=== PATIENT | female | born 1975 ===

== ENCOUNTER 2016-07-23 17:39 | Observation (INO) | payer MEDICAID ==
[2016-07-23 17:40] VITALS: BMI 36.0
--- NOTE | 2016-07-23 18:21 | C.PDOC ---
History Of Present Illness <Rebekah Lewis - Last Filed: 07/23/16 19:00> <Krupa Chadwick - Last Filed: 07/23/16 20:53> 41 y/o female with PMH DM, HTN, CAD and chronic back pain presents to the ED with complaints of left sided chest pain and dizziness since last night. Patient reports chest pain is intermittent and describes it as burning. She states she has SOB with exertion. She reports dizziness worse upon standing or walking and almost fell last night. Additionally patient complains of bilateral heel pain. She took ibuprofen without relief. Allergic to aspirin. Denies fever , chills, cough, nausea, headache, vomiting or any other complaints. (Rebekah Lewis) History Per: Patient History/Exam Limitations: no limitations Onset/Duration Of Symptoms: Hrs Current Symptoms Are (Timing): Still Present Quality: Burning Modifying Factors: None Alleviating Factors: None Recent travel outside of the [place]: No <Rbeekah Lewis - Last Filed: 07/23/16 19:00> <Krupa Chadwick - Last Filed: 07/23/16 20:53> Time Seen by Provider: 07/23/16 18:11 Chief Complaint (Nursing): Chest Pain Past Medical History Reviewed: Historical Data, Nursing Documentation, Vital Signs - Medical History PMH: Asthma, Back Problems (2 herniated discz), Cardia Arrhythmia, Diabetes, HTN , Kidney Stones, Chronic Kidney Disease Surgical History: Coronary Stent Comment Only: Pacemaker (revealed device 2014 dr. Galan) Family History: States: Unknown Family Hx - Social History Hx Tobacco Use: No Hx Alcohol Use: No Hx Substance Use: No - Immunization History Hx Tetanus Toxoid Vaccination: No Hx Influenza Vaccination: Yes Hx Pneumococcal Vaccination: No <Rebekah Lewis - Last Filed: 07/23/16 19:00> Vital Signs: Last Vital Signs Temp 98.0 F 07/23/16 18:26 Pulse 75 07/23/16 18:26 Resp 14 07/23/16 18:26 BP 105/69 07/23/16 18:26 Pulse Ox 98 07/23/16 18:26 - [facility] Procedures INSPECTION OF LOWER INTESTINAL TRACT, ENDO (05/13/16) Review Of Systems Constitutional: Negative for: Fever, Chills, Weakness, Malaise Eyes: Negative for: Conjunctivae Inflammation ENT: Negative for: Nose Congestion, Throat Pain Cardiovascular: Positive for: Chest Pain Respiratory: Positive for: Shortness of Breath. Negative for: Cough, Sputum, Wheezing Gastrointestinal: Negative for: Nausea, Vomiting, Abdominal Pain, Diarrhea Musculoskeletal: Positive for: Other (bilateral heel pain). Negative for: Neck Pain, Back Pain Neurological: Positive for: Dizziness. Negative for: Weakness, Numbness, Headache <LewisRebekah Last Filed: 07/23/16 19:00> Physical Exam - Physical Exam Appears: Non-toxic, No Acute Distress, Other (morbidly obese) Skin: Warm, Dry, No Rash Head: Atraumatic, Normacephalic Eye(s): bilateral: Normal Inspection, EOMI Nose: Normal Neck: Normal ROM, Supple Chest: Symmetrical, Tenderness (anterior chest wall) Cardiovascular: Rhythm Regular, No Murmur Respiratory: Normal Breath Sounds, No Rales, No Rhonchi, No Wheezing Gastrointestinal/Abdominal: Bowel Sounds, Soft, No Tenderness, No Mass, No Distention Back: Normal Inspection, No CVA Tenderness Extremity: Normal ROM, Tenderness (bilateral heel tenderness), No Pedal Edema, No Calf Tenderness, No Deformity Pulses: Left Dorsalis Pedis: Normal, Right Dorsalis Pedis: Normal Neurological/Psych: Oriented x3, Normal Speech, Normal Cranial Nerves, No Cerebellar Signs, Normal Motor, Normal Sensation Gait: Steady <Rebekah Lewis Filed: 07/23/16 19:00> ED Course And Treatment ECG: Interpreted By Me, Viewed By Me ECG Rhythm: Sinus Rhythm ECG Interpretation: No Acute Changes, No Changes From Prior (05/13/16) Rate From EC (BPM) <Rebekah Lewis Last Filed: 07/23/16 19:00> - Laboratory Results Result Diagrams: 07/23/16 19:01 07/23/16 19:01 Lab Interpretation: No Acute Changes Urine POC: Negative - Radiology CXR: Viewed By Me, Read By Radiologist CXR Interpretation: Yes: No Acute Disease Progress Note: Pt was signed out to me at 7pm by JIMY Lewis/Dr. Gibbs to f/up labs and CXR. Pt still c/o CP. I ordered Plavix for pt since she is allergic to aspirin. <Estephan,Amir E - Last Filed: 07/23/16 20:53> Medical Decision Making <Rebekah Lewis - Last Filed: 07/23/16 19:00> <Krupa Chadwick E - Last Filed: 07/23/16 20:53> Medical Decision Making: Impression: 41 y.o female with PMH DM, HTN and Coronary stents, rule out ACS Plan: * EKG * Labs * CXR Progress: EKG obtained and reviewed showing NS at 72 bpm with normal axis and no ischemic changes. No changs from 05/13/16 Case signed out to Dr Chadwick pending labs, reeval and dispo (Rebekah Lewis) Disposition - Disposition Disposition Time: 19:01 - POA Present On Arrival: None <Rebekah Lewis - Last Filed: 07/23/16 19:00> Discussed With DrZahra: José Miguel Abebe Comment: He accepted pt on hospitalist service since she is a pt of Dr. Montero. Doctor Will See Patient In The: Hospital Counseled Patient/Family Regarding: Studies Performed, Diagnosis - Disposition Disposition Time: 20:52 <Krupa Chadwick E - Last Filed: 07/23/16 20:53> - Disposition Disposition: HOSPITALIZED Condition: FAIR - Clinical Impression Clinical Impression: Dizziness, Chest pain - PA / CASSEROLE PREPARER / Resident Statement MD/DO has reviewed & agrees with the documentation as recorded. - Scribe Statement The provider has reviewed the documentation as recorded by the Scribe <Rebekah Lewis - Last Filed: 07/23/16 19:00> <Krupa Chadwick E - Last Filed: 07/23/16 20:53> - Scribe Statement Simon Hung All medical record entries made by the Scribe were at my direction and personally dictated by me. I have reviewed the chart and agree that the record accurately reflects my personal performance of the history, physical exam, medical decision making, and the department course for this patient. I have also personally directed, reviewed, and agree with the discharge instructions and disposition. (Rebekah Lewis) Physician Patient Turnover Patient Signed Over To: Krupa Chadwick Handoff Comments: pending labs, reeval and dispo <Rebekah Lewis - Last Filed: 07/23/16 19:00>
[2016-07-23] MEDS ORDERED: Sodium Chloride 0.9% 1,000 ML IV ONE (18:35)
[2016-07-23 19:14] LABS: BASO # 0.1 K/uL (0.0-0.2); BASO % 0.9 % (0.0-2.0); EOS # 0.1 K/uL (0.0-0.7); EOS % 0.9 % (0.0-4.0); HEMATOCRIT 40.6 % (34.0-47.0); LYMPH # 2.1 K/uL (1.0-4.3); MEAN CELL VOLUME 91.6 fL (81.0-99.0); MEAN CORPUSCULAR HEMOGLOBIN 29.4 pg (27.0-31.0); MEAN PLATELET VOLUME 8.2 fL (7.2-11.7); MONO # 0.5 K/uL (0.0-0.8); MONO % 6.5 % (0.0-10.0); RED CELL DISTRIBUTION WIDTH 13.2 % (11.5-14.5); WHITE BLOOD COUNT 7.4 K/uL (4.8-10.8)
[2016-07-23 19:22] LABS: CHLORIDE 99 mmol/L (98-107); SODIUM 140 mmol/L (132-148)
[2016-07-23 19:24] LABS: GFR AFRICAN-AMERICAN > 60
[2016-07-23 19:25] LABS: ALB/GLOB RATIO 1.2 (1.0-2.1); ALKALINE PHOSPHATASE 68 U/L (38-126); ALT/SGPT 25 U/L (9-52); AST/SGOT 19 U/L (14-36); BILIRUBIN,TOTAL 0.3 mg/dL (0.2-1.3); BLOOD UREA NITROGEN 16 mg/dL (7-17); CARBON DIOXIDE 29 mmol/L (22-30); GLUCOSE,RANDOM 97 mg/dL (65-105); TOTAL PROTEIN 7.1 g/dL (6.3-8.3)
[2016-07-23 19:26] LABS: CALCIUM 8.6 mg/dl (8.6-10.4)
[2016-07-23] MEDS ORDERED: Sodium Chloride 0.9% 1,000 ML ONE (19:49)
[2016-07-23 20:17] LABS: RBC URINE 3 /hpf (0-3); URINE BACTERIA FEW (<OCC); URINE BILIRUBIN NEGATIVE (NEGATIVE); URINE BLOOD 1+ (NEGATIVE); URINE COLOR Yellow (YELLOW); URINE GLUCOSE (UA) NORMAL (Normal); URINE KETONE NEGATIVE (NEGATIVE); URINE LEUKOCYTE ESTERASE 3+ Leu/uL (Negative); URINE PROTEIN NEGATIVE (NEGATIVE); URINE UROBILINOGEN NORMAL mg/dL (0.2-1.0); WBC URINE 12 /hpf (0-5)
--- NOTE | 2016-07-23 21:02 | CP.PCM.HP ---
History of Present Illness - History of Present Illness History of Present Illness: CC: Chest pain, SOB, Dizziness HPI: Patient is 41 year old female, with PMHx of DM, HTN, CAD and herniated discs, who presents to the ED with complaints of chest pain, and dizziness last night. She reports that the chest pain came on suddenly last night after dinner. She thought the pain was just "gas pain," so she took 2 ibuprofen tablets to take the pain away. She was able to go to sleep but the pain woke her up in the middle of the night. When in the morning the pain remained she decided to go to the emergency room. She describes the chest pain as an intermittent, "burning, pressure-like pain" in the left side of her chest that radiates to the left arm and neck. She rates the pain as 7/10 on the severity scale now, but 10/10 at the worst. Pt also c/o SOB with exertion. She states previously she had been able to get around her house with no issues but lately it has become more difficult. She also reports associated dizziness that is worse with standing or walking. She describes the dizziness as the sensation of the room spinning, and was to the point last night and almost fell last night. She reports having this dizziness before when her chest pain began "a few years ago." Additionally patient complains of bilateral heel pain. She reports any pressure on her heels brings a shooting pain up her legs. She states that she normally has electrical pain, numbness, and tingling in her legs "from her diabetes." Pt notes history of stent placement by her construction executive Dr. Winston Jimenez. She states she saw him last week and he plans on pacemaker placement at a future date. She admits seeing heel slugger twice a year. She also reports seeing an outpatient bariatric clinic for workup for gastric bypass surgery. Denies fever, chills, cough, nausea, headache, vomiting or any other complaints. PMHx: DM, HTN, CAD (stent), atrial fibrillation, 2 herniated discs PSHx: Stent placement (2013 - Dr. Winston Jimenez), Cardiac Cath PMD: Dr. Bullock ([place], [place]) Allergies: ASA, Penicillin (rash) Fam Hx: Mother with T2DM SHx: pt denies alcohol, tobacco, or illicit drug use Cardio: Dr. Winston Jimenez Home Meds: Metformin 500mg PO BID, Victoza 8 units in in AM/PM with meals, Percocet (unknown dose) BID, Pt does not remember BP med - Pharmacy: [facility], [address] in [place], [place] Present on Admission - Present on Admission Any Indicators Present on Admission: No Review of Systems - Constitutional Constitutional: absent: Chills, Fever, Headache, Weight Gain, Weight Loss - EENT Eyes: absent: Blurred Vision Ears: absent: Decreased Hearing Nose/Mouth/Throat: Dry Mouth. absent: Nasal Discharge - Cardiovascular Cardiovascular: Chest Pain, Chest Pain at Rest, Dyspnea on Exertion. absent: Dyspnea, Orthopnea, Palpitations - Respiratory Respiratory: Dyspnea on Exertion. absent: Cough - Gastrointestinal Gastrointestinal: absent: Abdominal Pain, Diarrhea, Nausea, Vomiting - Genitourinary Genitourinary: absent: Dysuria, Urinary Frequency - Neurological Neurological: Dizziness. absent: Focal Weakness, Weakness - Psychiatric Psychiatric: absent: Anxiety, Depression - Endocrine Endocrine: absent: Palpitations, Polydipsia, Polyphagia, Polyuria Past Patient History - Infectious Disease Hx of Infectious Diseases: None - Past Medical History & Family History Past Medical History?: Yes - Past Social History Smoking Status: Never Smoked - CARDIAC Hx Cardia Arrhythmia: Yes Hx Hypertension: Yes Hx Pacemaker: (revealed device 2013 dr. Galan) - PULMONARY Hx Asthma: Yes - NEUROLOGICAL Hx Neurological Disorder: No - HEENT Hx HEENT Problems: No - RENAL Hx Chronic Kidney Disease: Yes Hx Kidney Stones: Yes - ENDOCRINE/METABOLIC Hx Diabetes Mellitus Type 2: Yes - HEMATOLOGICAL/ONCOLOGICAL Hx Blood Disorders: No - INTEGUMENTARY Hx Dermatological Problems: No - MUSCULOSKELETAL/RHEUMATOLOGICAL Hx Musculoskeletal Disorders: Yes - GASTROINTESTINAL Hx Gastrointestinal Disorders: Yes Hx Hemorrhoids: Yes - GENITOURINARY/GYNECOLOGICAL Hx Genitourinary Disorders: No - PSYCHIATRIC Hx Substance Use: No - SURGICAL HISTORY Hx Coronary Stent: Yes - ANESTHESIA Hx Anesthesia: Yes Hx Anesthesia Reactions: No Meds Allergies/Adverse Reactions: Allergies Allergy/AdvReac Type Severity Reaction Status Date / Time aspirin Allergy URTICARIA Verified 05/22/16 03:55 Penicillins Allergy Verified 07/23/16 17:57 Physical Exam - Constitutional Appears: Non-toxic, No Acute Distress Additional comments: Morbidly Abuse - Head Exam Head Exam: ATRAUMATIC, NORMAL INSPECTION, NORMOCEPHALIC - Eye Exam Eye Exam: EOMI Pupil Exam: PERRL - ENT Exam ENT Exam: Mucous Membranes Moist - Neck Exam Neck exam: Positive for: Normal Inspection - Respiratory Exam Respiratory Exam: Clear to Auscultation Bilateral. absent: Rales, Rhonchi, Wheezes - Cardiovascular Exam Cardiovascular Exam: REGULAR RHYTHM, +S1, +S2 - GI/Abdominal Exam GI & Abdominal Exam: Normal Bowel Sounds, Soft Additional comments: morbid obesity - Extremities Exam Extremities exam: Positive for: pedal edema (non-pitting swelling), tenderness ( worst at the heel). Negative for: calf tenderness Additional comments: heel lesions - Back Exam Back exam: absent: CVA tenderness (L), CVA tenderness (R) - Neurological Exam Neurological exam: Alert, Oriented x3 - Psychiatric Exam Psychiatric exam: Normal Affect, Normal Mood - Skin Skin Exam: Normal Color, Warm Results - Vital Signs Recent Vital Signs: Last Vital Signs Temp 98.0 F 07/23/16 18:26 Pulse 75 07/23/16 18:26 Resp 14 07/23/16 18:26 BP 105/69 07/23/16 18:26 Pulse Ox 98 07/23/16 18:26 - Labs Result Diagrams: 07/23/16 19:01 07/23/16 19:01 Labs: Laboratory Results - last 24 hr 07/23/16 07/23/16 07/23/16 19:01 19:46 20:15 WBC 7.4 RBC 4.44 Hgb 13.0 Hct 40.6 MCV 91.6 MCH 29.4 MCHC 32.0 L RDW 13.2 Plt Count 278 MPV 8.2 Neut % (Auto) 62.7 Lymph % (Auto) 29.0 [place] % (Auto) 6.5 Eos % (Auto) 0.9 Baso % (Auto) 0.9 Neut # 4.6 Lymph # 2.1 [place] # 0.5 Eos # 0.1 Baso # 0.1 PT 11.6 INR 1.0 APTT 30 Sodium 140 Potassium 4.0 Chloride 99 Carbon Dioxide 29 Anion Gap 16 BUN 16 Creatinine 0.8 Est GFR ( Amer) > 60 Est GFR (Non-Af Amer) > 60 POC Glucose (mg/dL) 95 Random Glucose 97 Calcium 8.6 Total Bilirubin 0.3 AST 19 ALT 25 Alkaline Phosphatase 68 Troponin I < 0.0120 NT-Pro-B Natriuret Pep 267 Total Protein 7.1 Albumin 3.8 Globulin 3.3 Albumin/Globulin Ratio 1.2 Urine Color Yellow Urine Clarity Clear Urine pH 6.0 Ur Specific [place] 1.016 Urine Protein Negative Urine Glucose (UA) Normal Urine Ketones Negative Urine Blood 1+ H Urine Nitrate Negative Urine Bilirubin Negative Urine Urobilinogen Normal Ur Leukocyte Esterase 3+ H Urine WBC (Auto) 12 H Urine RBC (Auto) 3 Ur Squamous Epith Cells 2 Urine Bacteria Few H Urine HCG, Qual Negative Assessment & Plan - Assessment and Plan (Free Text) Assessment: Chest pain Pt tender to palpation on anterior chest wall Observation on telemetry unit FELIPE: negative x1, f/u Q6H x 2 EKG: NSR, no acute St/T wave changes; f/u Q6H x2 CXR: NAD Pt allergic to Aspirin (rash) Hold Beta katerina, Venkatesh Inhibitor as pt normotensive Plavix 300mg x 1 in ED 2L O2 PRN f/u Lipid panel, TSH, Free T4, A1C, UDS ECHO (02/26/2016): LV systolic & diastolic fxn appear normal. Mitral valve normal. Cannot comment on other structures of function. Cardiology consult: Dr. Winston Keys - f/u reccs HERMINIO score: 3, 14% DM Continue home med: Metformin 500mg PO BID Victoza (Non-formulary) HELD ISS f/u hemoglobin A1c Dizziness With walking, not positional Orthostatic vitals: WNL; [place]-Hallpike negative Previous syncopal work up: carotid dopplers (05/19): negative HTN Normotensive in ED Pt does not know home med Holding BB, Venkatesh inhibitor as pt normotensive Herniated discs Percocet 5/325mg Q12H (listed in prior admission) On previous admission, Dr. Dexter discharge summary notes "frequent visits to [facility] hospitals with non-specific complaints...with drug seeking behavior" Atrial fibrillation Questionable hx - see Dr. Dexter note from last admission EKG: NSR, No St/T wave changes Abnormal UA w/o symptoms: UA: 1+ blood, 3+ LE, WBC 12, RBC 3, Bacteria few Asymptomatic, No treatment at this time Prophylaxis SCDs Pepcid 20 mg PO BID Heparin 5000 units Q8H Heart healthy moderate carb diet Fall precautions PT evaluation
[2016-07-23] MEDS: Oxycodone/Acetaminophen 5/325 mg Tab PO PRN (23:02)
[2016-07-24] MEDS ORDERED: Pneumococcal 23-Valent Vaccine IM ONE (05:14)
[2016-07-24] MEDS ORDERED: Oxycodone/Acetaminophen 5/325 mg Tab PO ONE (05:15)
[2016-07-24] MEDS: (Novolin R) Insulin Human Regular 100 units/ml vial SC SCH ×4 (07:41→21:50)
--- NOTE | 2016-07-24 08:49 | RAD ---
HISTORY: chest pain COMPARISON: 02/26/2016 TECHNIQUE: Chest PA and lateral FINDINGS: LUNGS: No active pulmonary disease. PLEURA: No significant pleural effusion identified. No pneumothorax apparent. CARDIOVASCULAR: Normal. OSSEOUS STRUCTURES: No significant abnormalities. VISUALIZED UPPER ABDOMEN: Normal. OTHER FINDINGS: None. IMPRESSION: No active disease.
[2016-07-24 09:57] LABS: BASO % 0.6 % (0.0-2.0); EOS # 0.1 K/uL (0.0-0.7); EOS % 1.3 % (0.0-4.0); HEMATOCRIT 38.7 % (34.0-47.0); LYMPH # 2.2 K/uL (1.0-4.3); LYMPH % 33.2 % (20.0-40.0); MEAN CELL VOLUME 92.2 fL (81.0-99.0); MEAN CORPUSCULAR HEMOGLOBIN 29.6 pg (27.0-31.0); MEAN CORPUSCULAR HGB CONC 32.2 g/dL (33.0-37.0); MEAN PLATELET VOLUME 8.6 fL (7.2-11.7); MONO # 0.4 K/uL (0.0-0.8); MONO % 5.9 % (0.0-10.0); RED CELL DISTRIBUTION WIDTH 13.6 % (11.5-14.5); WHITE BLOOD COUNT 6.7 K/uL (4.8-10.8)
[2016-07-24 10:07] LABS: CHLORIDE 99 mmol/L (98-107)
[2016-07-24 10:08] LABS: SODIUM 140 mmol/L (132-148)
[2016-07-24 10:10] LABS: CHOLESTEROL 141 mg/dL (0-199)
[2016-07-24 10:11] LABS: ALB/GLOB RATIO 1.1 (1.0-2.1); ALKALINE PHOSPHATASE 67 U/L (38-126); ALT/SGPT 19 U/L (9-52); AST/SGOT 20 U/L (14-36); BILIRUBIN,TOTAL 0.5 mg/dL (0.2-1.3); BLOOD UREA NITROGEN 17 mg/dL (7-17); CARBON DIOXIDE 27 mmol/L (22-30); GFR AFRICAN-AMERICAN > 60; GLUCOSE,RANDOM 85 mg/dL (65-105); PHOSPHOROUS 4.5 mg/dL (2.5-4.5); TOTAL PROTEIN 6.9 g/dL (6.3-8.3)
[2016-07-24 10:12] LABS: CALCIUM 8.4 mg/dl (8.6-10.4); MAGNESIUM 1.7 mg/dL (1.6-2.3)
[2016-07-24 10:20] LABS: POTASSIUM 3.4 mmol/L (3.6-5.2)
[2016-07-24] MEDS ORDERED: Potassium Chloride 20 mEq ER Tab PO ONE (10:36)
[2016-07-24 10:45] LABS: THYROID STIMULATING HORMONE 3.11 mIU/L (0.46-4.68)
[2016-07-24] MEDS: Oxycodone/Acetaminophen 5/325 mg Tab PO PRN (11:04)
[2016-07-24] MEDS: Naproxen 550 mg Tab PO PRN (12:37)
--- NOTE | 2016-07-24 15:56 | CP.PCM.PN ---
<Karina Leiva - Last Filed: 07/24/16 15:46> Subjective - Date & Time of Evaluation Date of Evaluation: 07/24/16 Time of Evaluation: 07:40 - Subjective Subjective: PGY [address] Bonilla: Patient seen and examined at bedside this morning. She states that she is having some pain under her L breast "where my stent is". She states this pain has been there for about 3 months. She has been to the hospital before for this same pain and has had cardiac work ups. She states that she also has pain all over especially in his feet and that it is painful for her to walk. She states she has numbness and tingling in both feet which she has had "for a long time". She also states that she is dizzy but can't describe is she feels like she is spinning ro the room is spinningg. She says she gets dizzy frequently at home. Patient denies head aches, vision changes, SOB, abd pain , N/V, diarrhea/ constipation. Objective - Vital Signs/Intake and Output Vital Signs (last 24 hours): Temp Pulse Resp BP Pulse Ox 98.1 F 74 16 106/70 96 07/24/16 12:08 07/24/16 12:08 07/24/16 12:08 07/24/16 12:08 07/24/16 12:08 - Medications Medications: Current Medications Famotidine (Pepcid) 20 mg PO BID [facility] Last Admin: 07/24/16 09:39 Dose: 20 mg Gabapentin (Neurontin) 100 mg PO TID [facility] Last Admin: 07/24/16 13:53 Dose: 100 mg Heparin Sodium (Porcine) (Heparin) 5,000 units SC Q8 [facility] Last Admin: 07/24/16 13:53 Dose: 5,000 units Insulin Human Regular (Novolin R) 0 unit SC ACHS [facility] PRN Reason: Protocol Last Admin: 07/24/16 11:43 Dose: Not Given Naproxen (Anaprox Ds) 550 mg PO Q12 PRN PRN Reason: Pain, severe (8-10) Last Admin: 07/24/16 12:37 Dose: 550 mg Ondansetron HCl (Zofran Inj) 4 mg IVP Q6 PRN PRN Reason: Nausea/Vomiting Last Admin: 07/24/16 09:39 Dose: 4 mg Oxycodone/Acetaminophen (Percocet 5/325 Mg Tab) 1 tab PO Q12H PRN PRN Reason: Pain, severe (8-10) Stop: 07/26/16 22:36 Last Admin: 07/24/16 11:04 Dose: 1 tab Pneumococcal Polyvalent Vaccine (Pneumovax 23 Vaccine) 0.5 ml IM .ONCE ONE Stop: 07/25/16 10:01 Rosuvastatin Calcium (Crestor) 10 mg PO HS [facility] Last Admin: 07/23/16 23:02 Dose: 10 mg - Labs Labs: 07/24/16 09:47 07/24/16 09:47 PT 11.6 SECONDS (9.7-12.2) 07/23/16 19:01 INR 1.0 07/23/16 19:01 APTT 30 SECONDS (21-34) 07/23/16 19:01 - Constitutional Appears: Non-toxic, No Acute Distress - Head Exam Head Exam: ATRAUMATIC, NORMAL INSPECTION - Eye Exam Eye Exam: EOMI, Normal appearance, PERRL Pupil Exam: NORMAL ACCOMODATION - ENT Exam ENT Exam: Mucous Membranes Moist - Respiratory Exam Respiratory Exam: Clear to Ausculation Bilateral, NORMAL BREATHING PATTERN. absent: Accessory Muscle Use, Chest Wall Tenderness, Rales, Rhonchi, Wheezes, Respiratory Distress - Cardiovascular Exam Cardiovascular Exam: REGULAR RHYTHM, +S1, +S2. absent: Murmur - GI/Abdominal Exam GI & Abdominal Exam: Soft, Normal Bowel Sounds. absent: Distended, Firm, Guarding, Tenderness Additional comments: morbidly obese - Extremities Exam Extremities Exam: Normal Inspection. absent: Calf Tenderness, Pedal Edema - Back Exam Back Exam: NORMAL INSPECTION. 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 Mitral valve normal. Cannot comment on other structures of function. HbA1c in 08.31 Cardiology consult: Dr. Winston Keys - f/u reccs HERMINIO score: 3, 14% DM with neuropathy Gabapentin 100mg PO TID Continue home med: Metformin 500mg PO BID Victoza (Non-formulary) HELD ISS HbA1c in 08.31 Dizziness With walking, not positional Orthostatic vitals: WNL; Alfred[place]-Hallpike negative Previous syncopal work up: carotid dopplers (05/19): negative HTN Normotensive in ED Pt does not know home med Holding BB, Venkatesh inhibitor as pt normotensive Herniated discs Percocet 5/325mg Q12H (listed in prior admission) - held On previous admission, Dr. Dexter discharge summary notes "frequent visits to [facility] hospitals with non-specific complaints...with drug seeking behavior" Patient requesting multiple time for stonger and IV pain medications Atrial fibrillation Exam heart sounds regular, NSR on tele monitro Questionable hx - see Dr. Dexter note from last admission EKG: NSR, No St/T wave changes Abnormal UA w/o symptoms: UA: 1+ blood, 3+ LE, WBC 12, RBC 3, Bacteria few Asymptomatic, No treatment at this time Prophylaxis SCDs Pepcid 20 mg PO BID Heparin 5000 units Q8H Heart healthy moderate carb diet Fall precautions PT evaluation <Nigel Bonilla H - Last Filed: 07/24/16 16:56> Objective - Vital Signs/Intake and Output Vital Signs (last 24 hours): Temp Pulse Resp BP Pulse Ox 98.1 F 74 16 106/70 96 07/24/16 12:08 07/24/16 12:08 07/24/16 12:08 07/24/16 12:08 07/24/16 12:08 - Medications Medications: Current Medications Famotidine (Pepcid) 20 mg PO BID [facility] Last Admin: 07/24/16 09:39 Dose: 20 mg Gabapentin (Neurontin) 100 mg PO TID [facility] Last Admin: 07/24/16 13:53 Dose: 100 mg Heparin Sodium (Porcine) (Heparin) 5,000 units SC Q8 [facility] Last Admin: 07/24/16 13:53 Dose: 5,000 units Insulin Human Regular (Novolin R) 0 unit SC ACHS [facility] PRN Reason: Protocol Last Admin: 07/24/16 11:43 Dose: Not Given Naproxen (Anaprox Ds) 550 mg PO Q12 PRN PRN Reason: Pain, severe (8-10) Last Admin: 07/24/16 12:37 Dose: 550 mg Ondansetron HCl (Zofran Inj) 4 mg IVP Q6 PRN PRN Reason: Nausea/Vomiting Last Admin: 07/24/16 09:39 Dose: 4 mg Oxycodone/Acetaminophen (Percocet 5/325 Mg Tab) 1 tab PO Q12H PRN PRN Reason: Pain, severe (8-10) Stop: 07/26/16 22:36 Last Admin: 07/24/16 11:04 Dose: 1 tab Pneumococcal Polyvalent Vaccine (Pneumovax 23 Vaccine) 0.5 ml IM .ONCE ONE Stop: 07/25/16 10:01 Rosuvastatin Calcium (Crestor) 10 mg PO HS [facility] Last Admin: 07/23/16 23:02 Dose: 10 mg - Labs Labs: 07/24/16 09:47 07/24/16 09:47 PT 11.6 SECONDS (9.7-12.2) 07/23/16 19:01 INR 1.0 07/23/16 19:01 APTT 30 SECONDS (21-34) 07/23/16 19:01 Attending/Attestation - Attestation I have personally seen and examined this patient.: Yes I have fully participated in the care of the patient.: Yes I have reviewed all pertinent clinical information, including history, physical exam and plan: Yes Notes (Text): 07/24/16 16:51 Medical Hospitalist: Patient was seen and examined by me. Reviewed the above note and agree with the resident note. The chest pain the patient states she has on her chest appears to be reproducible. When I ask her is this the pain that bring you to the hospital with pressing, she says yes. The first cardiac enzyme is negative at this time and we are waiting on further ones to return. If these are negative I expplained to the patient that she would be discharged. EKG was repeated and it appears to be similar to before at this time When we explained to her that we are waiting for further lab work for her heart and if these are negative that we would discharge patient - she tells us she has leg pain, back pain, neck pain and needs more pain medication. I am hesitate to give more narcotic class medication since per review of notes other physicians have urged caution due to her asking a lot thank you Nigel Bonilla
[2016-07-24 20:58] VITALS: RESP 20
[2016-07-24] MEDS ORDERED: Oxycodone/Acetaminophen 5/325 mg Tab PO STA (23:06)
[2016-07-25 07:23] LABS: BASO % 0.5 % (0.0-2.0); EOS # 0.1 K/uL (0.0-0.7); EOS % 1.6 % (0.0-4.0); HEMATOCRIT 37.1 % (34.0-47.0); LYMPH # 2.2 K/uL (1.0-4.3); LYMPH % 36.8 % (20.0-40.0); MEAN CELL VOLUME 91.7 fL (81.0-99.0); MEAN CORPUSCULAR HEMOGLOBIN 30.1 pg (27.0-31.0); MEAN CORPUSCULAR HGB CONC 32.8 g/dL (33.0-37.0); MEAN PLATELET VOLUME 8.4 fL (7.2-11.7); MONO # 0.4 K/uL (0.0-0.8); MONO % 6.8 % (0.0-10.0); NRBC % 0.1 % (0.0-2.0); RED CELL DISTRIBUTION WIDTH 13.6 % (11.5-14.5); WHITE BLOOD COUNT 5.9 K/uL (4.8-10.8)
[2016-07-25] MEDS: (Novolin R) Insulin Human Regular 100 units/ml vial SC SCH (07:32)
[2016-07-25 07:34] LABS: CHLORIDE 99 mmol/L (98-107); POTASSIUM 3.6 mmol/L (3.6-5.2); SODIUM 139 mmol/L (132-148)
[2016-07-25 07:36] LABS: ALB/GLOB RATIO 1.1 (1.0-2.1); AST/SGOT 26 U/L (14-36); BILIRUBIN,TOTAL 0.7 mg/dL (0.2-1.3); CARBON DIOXIDE 29 mmol/L (22-30); GFR AFRICAN-AMERICAN > 60; TOTAL PROTEIN 6.7 g/dL (6.3-8.3)
[2016-07-25 07:37] LABS: ALKALINE PHOSPHATASE 71 U/L (38-126); ALT/SGPT 33 U/L (9-52); BLOOD UREA NITROGEN 17 mg/dL (7-17); GLUCOSE,RANDOM 83 mg/dL (65-105); MAGNESIUM 1.7 mg/dL (1.6-2.3); PHOSPHOROUS 4.7 mg/dL (2.5-4.5)
[2016-07-25 09:09] VITALS: BP 90/56; PULSE 57; TEMP 98.4; O2SAT 97
--- NOTE | 2016-07-25 09:10 | CP.PCM.DIS ---
Provider - Provider Date of Admission: 07/23/16 20:53 Attending physician: José Miguel Abebe MD Time Spent in preparation of Discharge (in minutes): 29 Diagnosis - Discharge Diagnosis (1) Chest pain Status: Chronic Comment: 07/25: Patient had reproducible chest pain - the pain appears to be left chest - and more likley musculoskeletal in nature, the pain is from her left chest and goes under left breast with palpation. Her cardiac enzymes have been negative x 3. Per review of the 12 lead EKGs appear stable. She has been on the monitoring specialist and this showed a HR that is sinus in the 60s. She did not have any runs of vtach or irregular episodes on the monitor. Hospital Course - Lab Results Lab Results: Most Recent Lab Values WBC 5.9 K/uL (4.8-10.8) 07/25/16 07:08 RBC 4.05 Mil/uL (3.80-5.20) 07/25/16 07:08 Hgb 12.2 g/dL (11.0-16.0) 07/25/16 07:08 Hct 37.1 % (34.0-47.0) 07/25/16 07:08 MCV 91.7 fL (81.0-99.0) 07/25/16 07:08 MCH 30.1 pg (27.0-31.0) 07/25/16 07:08 MCHC 32.8 g/dL (33.0-37.0) L 07/25/16 07:08 RDW 13.6 % (11.5-14.5) 07/25/16 07:08 Plt Count 253 K/uL (130-400) 07/25/16 07:08 MPV 8.4 fL (7.2-11.7) 07/25/16 07:08 Neut % (Auto) 54.3 % (50.0-75.0) 07/25/16 07:08 Lymph % (Auto) 36.8 % (20.0-40.0) 07/25/16 07:08 [place] % (Auto) 6.8 % (0.0-10.0) 07/25/16 07:08 Eos % (Auto) 1.6 % (0.0-4.0) 07/25/16 07:08 Baso % (Auto) 0.5 % (0.0-2.0) 07/25/16 07:08 Neut # 3.2 K/uL (1.8-7.0) 07/25/16 07:08 Lymph # 2.2 K/uL (1.0-4.3) 07/25/16 07:08 [place] # 0.4 K/uL (0.0-0.8) 07/25/16 07:08 Eos # 0.1 K/uL (0.0-0.7) 07/25/16 07:08 Baso # 0.0 K/uL (0.0-0.2) 07/25/16 07:08 PT 11.6 SECONDS (9.7-12.2) 07/23/16 19:01 INR 1.0 07/23/16 19:01 APTT 30 SECONDS (21-34) 07/23/16 19:01 Sodium 139 mmol/L (132-148) 07/25/16 07:08 Potassium 3.6 mmol/L (3.6-5.2) 07/25/16 07:08 Chloride 99 mmol/L (98-107) 07/25/16 07:08 Carbon Dioxide 29 mmol/L (22-30) 07/25/16 07:08 Anion Gap 15 (10-20) 07/25/16 07:08 BUN 17 mg/dL (7-17) 07/25/16 07:08 Creatinine 0.7 MG/DL (0.7-1.2) 07/25/16 07:08 Est GFR ( Amer) > 60 07/25/16 07:08 Est GFR (Non-Af Amer) > 60 07/25/16 07:08 POC Glucose (mg/dL) 73 mg/dL (65-110) 07/25/16 06:20 Random Glucose 83 mg/dL (65-105) 07/25/16 07:08 Calcium 8.0 mg/dl (8.6-10.4) L 07/25/16 07:08 Phosphorus 4.7 mg/dL (2.5-4.5) H 07/25/16 07:08 Magnesium 1.7 mg/dL (1.6-2.3) 07/25/16 07:08 Total Bilirubin 0.7 mg/dL (0.2-1.3) 07/25/16 07:08 AST 26 U/L (14-36) 07/25/16 07:08 ALT 33 U/L (9-52) 07/25/16 07:08 Alkaline Phosphatase 71 U/L (38-126) 07/25/16 07:08 Total Creatine Kinase 32 U/L (30-135) 07/24/16 09:47 CK-MB (Mass) < 0.22 ng/mL (0.0-3.38) 07/24/16 09:47 Troponin I < 0.0120 ng/mL (0.00-0.120) 07/23/16 19:01 Troponin I, Quant < 0.0120 ng/mL (0.00-0.120) 07/24/16 09:47 NT-Pro-B Natriuret Pep 267 pg/mL (0-450) 07/23/16 19:01 Total Protein 6.7 g/dL (6.3-8.3) 07/25/16 07:08 Albumin 3.6 g/dL (3.5-5.0) 07/25/16 07:08 Globulin 3.1 gm/dL (2.2-3.9) 07/25/16 07:08 Albumin/Globulin Ratio 1.1 (1.0-2.1) 07/25/16 07:08 Triglycerides 102 mg/dL (0-149) 07/24/16 09:47 Cholesterol 141 mg/dL (0-199) 07/24/16 09:47 LDL Cholesterol Direct 86 mg/dL (0-129) 07/24/16 09:47 HDL Cholesterol 31 mg/dL (30-70) 07/24/16 09:47 Free T4 1.09 ng/dL (0.78-2.19) 07/24/16 09:47 TSH 3rd Generation 3.11 mIU/L (0.46-4.68) 07/24/16 09:47 Urine Color Yellow (YELLOW) 07/23/16 19:46 Urine Clarity Clear (Clear) 07/23/16 19:46 Urine pH 6.0 (5.0-8.0) 07/23/16 19:46 Ur Specific [place] 1.016 (1.003-1.030) 07/23/16 19:46 Urine Protein Negative mg/dL (NEGATIVE) 07/23/16 19:46 Urine Glucose (UA) Normal mg/dL (Normal) 07/23/16 19:46 Urine Ketones Negative mg/dL (NEGATIVE) 07/23/16 19:46 Urine Blood 1+ (NEGATIVE) H 07/23/16 19:46 Urine Nitrate Negative (NEGATIVE) 07/23/16 19:46 Urine Bilirubin Negative (NEGATIVE) 07/23/16 19:46 Urine Urobilinogen Normal mg/dL (0.2-1.0) 07/23/16 19:46 Ur Leukocyte Esterase 3+ Sara/uL (Negative) H 07/23/16 19:46 Urine WBC (Auto) 12 /hpf (0-5) H 07/23/16 19:46 Urine RBC (Auto) 3 /hpf (0-3) 07/23/16 19:46 Ur Squamous Epith Cells 2 /hpf (0-5) 07/23/16 19:46 Urine Bacteria Few (<OCC) H 07/23/16 19:46 Urine HCG, Qual Negative (NEGATIVE) 07/23/16 19:46 Urine Opiates Screen Negative (NEGATIVE) 07/24/16 01:00 Urine Methadone Screen Negative (NEGATIVE) 07/24/16 01:00 Ur Barbiturates Screen Negative (NEGATIVE) 07/24/16 01:00 Ur Phencyclidine Scrn Negative (NEGATIVE) 07/24/16 01:00 Ur Amphetamines Screen Negative (NEGATIVE) 07/24/16 01:00 U Benzodiazepines Scrn Negative (NEGATIVE) 07/24/16 01:00 U Oth Cocaine Metabols Negative (NEGATIVE) 07/24/16 01:00 U Cannabinoids Screen Negative (NEGATIVE) 07/24/16 01:00 - Hospital Course Hospital Course: This is a 41 year old, with PMHx of DM, HTN, CAD and herniated discs, who came to the ED with the CC of chest pain. She explains that she has had a lot of chronic pain especially in her back as well as legs. Her chest pain occured at night and finally she decided to come in the morning. The pain appears to be reproducible on exam, per review of previous records of also depression and anxiety. Patient had reproducible chest pain - the pain appears to be left chest - and more likley musculoskeletal in nature, the pain is from her left chest and goes under left breast with palpation. Her cardiac enzymes have been negative x 3. Per review of the 12 lead EKGs appear stable. She has been on the monitoring specialist and this showed a HR that is sinus in the 60s. She did not have any runs of vtach or irregular episodes on the monitor. There is some previous records of other physicians being concerned for narcotic seeking behavior. While here she appears to be very comfortable and not in any acute distress or pain. She does ask for more percocet however not excessively. She maybe more depressed, I explained to her that when she leaves from here that when she sees her PMD she should consider seeing psychiatry. Also we discussed weightloss, diet, excersise, and life style changes since she does have risk factors for future cardiac events - however truth be told I am not sure if she was ready to make these changes. She explains she has enough of her DM medication. I don't see a statin medication or an CHRISTOPHER-I and she is not sure so will give a RX for these thank you Nigel Bonilla Discharge Exam - Head Exam Head Exam: ATRAUMATIC, NORMAL INSPECTION - Eye Exam Eye Exam: EOMI, Normal appearance - Respiratory Exam Respiratory Exam: Clear to PA & Lateral, NORMAL BREATHING PATTERN, UNREMARKABLE - Cardiovascular Exam Cardiovascular Exam: REGULAR RHYTHM - GI/Abdominal Exam GI & Abdominal Exam: Distended, Normal Bowel Sounds Additional comments: Very obesity - Neurological Exam Neurological exam: Alert, CN II-XII Intact, Oriented x3 - Psychiatric Exam Psychiatric exam: Depressed, Flat Affect - Skin Skin Exam: Normal Color, Warm Discharge Plan - Discharge Medications Prescriptions: Lisinopril [Prinivil] 5 mg PO DAILY #30 tablet Simvastatin 10 mg PO DAILY #30 tablet - Follow Up Plan Condition: FAIR Disposition: HOME/ ROUTINE
[2016-07-25] MEDS ORDERED: Pneumococcal 23-Valent Vaccine IM ONE (10:00)
[2016-07-25] MEDS: Naproxen 550 mg Tab PO PRN (12:27)
--- NOTE | 2016-07-25 15:06 | CARD ---
APPROVED REPORT EKG Measurement Heart [id number] IN 138P20 [id number] <Conclusion> Normal sinus rhythm Normal ECG
--- NOTE | 2016-07-26 06:45 | CARD ---
APPROVED REPORT EKG Measurement Heart [id number] MS 136P-1 [id number] <Conclusion> Normal sinus rhythm Normal ECG
== END 2016-07-25 13:09 | disposition home or self-care (01) ==
LOC: C.ER 17:39 → C.9E 20:53 → C.6T 22:30
PROVIDERS: ADMIT Internal Medicine; ATTEND Internal Medicine
DX: R07.9 Chest pain, unspecified (principal); E11.9 Type 2 diabetes mellitus without complications; Z79.4 Long term (current) use of insulin; I10 Essential (primary) hypertension; Z68.42 Body mass index [BMI] 45.0-49.9, adult; Z95.5 Presence of coronary angioplasty implant and graft; I25.10 Atherosclerotic heart disease of native coronary artery without angina pectoris
CPT/HCPCS: 36415 ×2; 71020; 80053 ×3; 80061; 80324; 80345; 80346; 80349; 80353; 80358; 80361; 81001; 82948 ×3; 83735 ×2; 83880; 83992; 84100 ×2; 84439; 84443; 84484 ×2; 84703; 85025 ×3; 85610; 85730; 93005 ×2; 96360; 96374; 97116; 97162; 99285; G0378 ×3; G8978; G8979; J1644 ×2; J2270; J2405 ×2; J7040

== ENCOUNTER 2016-10-28 19:31 | Inpatient (IN) | payer MEDICAID ==
[2016-10-28 19:32] VITALS: BMI 36.0
--- NOTE | 2016-10-28 20:10 | C.PDOC ---
History Of Present Illness Patient is a 41 year old female who presents to the ER with a complaint of pain to lower extremities; states it is due to insect bites. Patient also complaints of intermittent chest pain; denies SOB, nausea, vomiting, or fever. Chief Complaint (Nursing): Chest Pain History Per: Patient History/Exam Limitations: no limitations Onset/Duration Of Symptoms: Hrs Current Symptoms Are (Timing): Still Present Associated Symptoms: denies: Nausea, Other (SOB, Fever, vomiting) Modifying Factors: None Exacerbating Factors: None Alleviating Factors: None Recent travel outside of the [place]: Yes Past Medical History Reviewed: Historical Data, Nursing Documentation, Vital Signs Vital Signs: Last Vital Signs Temp 98.6 F 10/28/16 19:47 Pulse 77 10/28/16 19:47 Resp 16 10/28/16 19:47 BP 130/83 10/28/16 19:47 Pulse Ox 100 10/28/16 22:24 - Medical History PMH: Asthma, Back Problems (2 herniated discz), Cardia Arrhythmia, Diabetes, HTN , Kidney Stones Surgical History: Cholecystectomy, Coronary Stent Comment Only: Pacemaker (revealed device 2014 dr. Galan) - [employer] Procedures INSPECTION OF LOWER INTESTINAL TRACT, ENDO (05/13/16) Family History: States: Unknown Family Hx - Social History Hx Tobacco Use: No Hx Alcohol Use: No Hx Substance Use: No - Immunization History Hx Tetanus Toxoid Vaccination: No Hx Influenza Vaccination: Yes Hx Pneumococcal Vaccination: Yes Review Of Systems Constitutional: Negative for: Fever Cardiovascular: Positive for: Chest Pain Respiratory: Negative for: Shortness of Breath Gastrointestinal: Negative for: Nausea, Vomiting Skin: Positive for: Other (Insect bites) Physical Exam - Physical Exam Appears: Non-toxic, No Acute Distress Skin: Warm, Dry, Other (Insect bites to distal lower leg w/ swelling and redness ) Head: Atraumatic, Normacephalic Oral Mucosa: Moist Chest: Symmetrical, No Tenderness Cardiovascular: Rhythm Regular, No Murmur Respiratory: Normal Breath Sounds, No Rales, No Rhonchi, No Wheezing Gastrointestinal/Abdominal: Soft, No Tenderness Extremity: Normal ROM (x4), Tenderness (To area of bug bites) Neurological/Psych: Oriented x3, Normal Speech, Normal Cognition ED Course And Treatment - Laboratory Results Result Diagrams: 10/28/16 20:44 10/28/16 20:44 ECG: Interpreted By Me, Viewed By Me ECG Rhythm: Sinus Rhythm ECG Interpretation: Normal, No Acute Changes Interpretation Of ECG: NSR, normal tracings Rate From EC O2 Sat by Pulse Oximetry: 100 (Room air) Pulse Ox Interpretation: Normal - CT Scan/US CTA Other Rad Studies (CT/US): Read By Radiologist, Radiology Report Reviewed CT/US Interpretation: EXAM: CT Angiography Chest With Intravenous Contrast. CLINICAL HISTORY: 41 years old, female; Pain; Chest pain; Left-sided chest pain ; Patient HX: Cardiac stent; Additional info: Chest pain/ elevated d-dimer. TECHNIQUE: Axial computed tomographic angiography images of the chest with intravenous. contrast using pulmonary embolism protocol. This CT exam was performed using one or more of the. following dose reduction techniques: automated exposure control, adjustment of the mA and/or kV. according to patient size, and/or use of iterative reconstruction technique. Coronal and sagittal. reformatted images were created and reviewed. CONTRAST: 100 mL of visipaque 320 administered intravenously. COMPARISON: No relevant prior studies available. FINDINGS: Artifacts: Scatter artifact likely related to patient's body habitus. Limitations: There is insufficient opacification of the pulmonary arteries to evaluate for pulmonary. embolism. Pulmonary arteries : See above. Aorta: No acute findings. No thoracic aortic aneurysm. Lungs: Small consolidative infiltrate or atelectasis in the left lower lobe. Pleural space: Unremarkable. No significant effusion. No pneumothorax. Heart: Unremarkable. No cardiomegaly. No significant pericardial effusion. No evidence of RV. dysfunction. Bones/joints: Probable benign bone island in T11. No acute fracture. No dislocation. Soft tissues: Unremarkable. Lymph nodes: Unremarkable. No enlarged lymph nodes. IMPRESSION: 1. There is insufficient opacification of the pulmonary arteries to evaluate for pulmonary embolism. Nuclear medicine VQ scan could be performed if indicated. 2. Small consolidative infiltrate or atelectasis in the left lower lobe. Cannot exclude the possibility of. a small pulmonary infarct. Progress Note: EKG, blood work and urinalysis ordered. Tylenol administered. Disposition Discussed With : Neena Cano Doctor Will See Patient In The: Hospital Counseled Patient/Family Regarding: Diagnosis - Disposition Disposition: HOSPITALIZED Disposition Time: 23:47 Condition: STABLE - POA Present On Arrival: None - Clinical Impression Clinical Impression: Pulmonary embolism, Chest pain - Scribe Statement Huber Teixeira All medical record entries made by the Scribe were at my direction and personally dictated by me. I have reviewed the chart and agree that the record accurately reflects my personal performance of the history, physical exam, medical decision making, and the department course for this patient. I have also personally directed, reviewed, and agree with the discharge instructions and disposition.
[2016-10-28 20:49] LABS: BASO % 0.6 % (0.0-2.0); EOS # 0.1 K/uL (0.0-0.7); EOS % 1.4 % (0.0-4.0); HEMOGLOBIN 12.8 g/dL (11.0-16.0); LYMPH # 2.2 K/uL (1.0-4.3); LYMPH % 32.9 % (20.0-40.0); MEAN CELL VOLUME 93.2 fL (81.0-99.0); MEAN CORPUSCULAR HEMOGLOBIN 30.7 pg (27.0-31.0); MEAN CORPUSCULAR HGB CONC 32.9 g/dL (33.0-37.0); MONO # 0.4 K/uL (0.0-0.8); MONO % 6.5 % (0.0-10.0); NEUT # 3.9 K/uL (1.8-7.0); NEUT % 58.6 % (50.0-75.0); RBC 4.15 Mil/uL (3.80-5.20); RED CELL DISTRIBUTION WIDTH 13.7 % (11.5-14.5); WHITE BLOOD COUNT 6.7 K/uL (4.8-10.8)
[2016-10-28 21:14] LABS: ALBUMIN 3.6 g/dL (3.5-5.0)
[2016-10-28 21:16] LABS: GFR AFRICAN-AMERICAN > 60; GFR NON-AFRICAN AMERICAN > 60
[2016-10-28 21:17] LABS: ALB/GLOB RATIO 1.1 (1.0-2.1); ALT/SGPT 20 U/L (9-52); AST/SGOT 29 U/L (14-36); BLOOD UREA NITROGEN 15 mg/dL (7-17); CALCIUM 8.1 mg/dl (8.6-10.4)
[2016-10-28 21:27] LABS: SQUAMOUS EPITHIAL 14 /hpf (0-5); URINE BACTERIA RARE (<OCC); URINE BILIRUBIN NEGATIVE (NEGATIVE); URINE BLOOD NEGATIVE (NEGATIVE); URINE CLARITY Hazy (Clear); URINE COLOR Yellow (YELLOW); URINE GLUCOSE (UA) NORMAL (Normal); URINE LEUKOCYTE ESTERASE 3+ Leu/uL (Negative); URINE NITRATE NEGATIVE (NEGATIVE); URINE PROTEIN NEGATIVE (NEGATIVE); URINE UROBILINOGEN NORMAL mg/dL (0.2-1.0)
[2016-10-28] MEDS ORDERED: Iodixanol 320 MG/ML 100 ML BOTTLE IV ONE (21:31)
[2016-10-28] MEDS ORDERED: Enoxaparin 40 mg Syringe SC STA (23:28)
[2016-10-28] MEDS ORDERED: Enoxaparin 80 mg Syringe ONE (23:38)
[2016-10-29] MEDS ORDERED: Oxycodone/Acetaminophen 5/325 mg Tab PO PRN ×2 (01:22→05:12)
[2016-10-29] MEDS: Heparin25000 units/250ml 1/2NS 25,000 UNITS/250 ML BAG IV PRN ×2 (02:00→08:48)
[2016-10-29] MEDS ORDERED: Oxycodone/Acetaminophen 5/325 mg Tab ONE (03:51)
[2016-10-29 04:59] LABS: BASO # 0.1 K/uL (0.0-0.2); EOS # 0.1 K/uL (0.0-0.7); EOS % 1.9 % (0.0-4.0); HEMOGLOBIN 12.5 g/dL (11.0-16.0); LYMPH # 2.6 K/uL (1.0-4.3); LYMPH % 37.6 % (20.0-40.0); MEAN CELL VOLUME 93.8 fL (81.0-99.0); MEAN CORPUSCULAR HEMOGLOBIN 30.4 pg (27.0-31.0); MEAN CORPUSCULAR HGB CONC 32.4 g/dL (33.0-37.0); MEAN PLATELET VOLUME 8.1 fL (7.2-11.7); MONO # 0.5 K/uL (0.0-0.8); MONO % 7.4 % (0.0-10.0); NEUT # 3.6 K/uL (1.8-7.0); NEUT % 52.1 % (50.0-75.0); RBC 4.1 Mil/uL (3.80-5.20); RED CELL DISTRIBUTION WIDTH 13.9 % (11.5-14.5); WHITE BLOOD COUNT 6.9 K/uL (4.8-10.8)
[2016-10-29] MEDS ORDERED: Oxycodone/Acetaminophen 5/325 mg Tab PO STA (05:15)
[2016-10-29 05:16] LABS: HDL CHOLESTEROL 36 mg/dL (30-70)
[2016-10-29 05:24] LABS: CK-MB < 0.22 ng/mL (0.0-3.38)
[2016-10-29 05:27] LABS: LDL CHOLESTEROL 81 mg/dL (0-129)
[2016-10-29] MEDS: (Novolog) Insulin Aspart, Recombinant 100 u/ml 10 ml vial SC SCH ×4 (09:50→21:35)
[2016-10-29] MEDS ORDERED: Metoprolol Succinate 12.5 mg XL PO SCH (10:00)
--- NOTE | 2016-10-29 10:18 | CT ---
CTA chest PE protocol Indication: chest pain/ elevated D-dimer Technique: Contiguous axial images were obtained through the chest with intravenous contrast enhancement. Sagittal and coronal reconstructions were generated and reviewed. This CT exam was performed using 1 or more of the falling dose reduction techniques: Automated exposure control, adjustment of the MAA and/or kV according to patient size, and/or use of iterative reconstruction technique. IV Contrast: 100 mL Visipaque Radiation dose (DLP): 521.17 MGy-cm. Comparison: None available Findings: Examination limited by habitus. Visualized portions of the inferior thyroid gland appear heterogeneous with enlargement of the left lower pole. Approximately 13 mm nodule noted in the left lower pole with associated peripheral calcification. The unenhanced mediastinal and hilar vascular structures appear grossly unremarkable. The heart appears within normal limits of size. There is suboptimal opacification of the pulmonary arteries (Approximately 170 HU at main pulmonary artery) due to missed bolus of the intravenous contrast limiting evaluation for pulmonary embolus. Given this limitation, there are no visible intraluminal filling defects within the central pulmonary arteries to suggest central pulmonary embolism. Small consolidative atelectasis or infiltrate noted in the left lower lobe. No pleural effusion. No pneumothorax. No suspicious pulmonary nodules identified measuring greater than 5 mm. Small hiatal hernia. Limited visualized portions of the upper abdomen demonstrates cholecystectomy clips. No T11 sclerotic focus T11 sclerotic focus, possibly bone island. Impression: Suboptimal opacification of the pulmonary artery is precludes adequate evaluation for pulmonary embolus. Allowing for this limitation, no large central pulmonary embolus identified. Small opacity in the left lower lobe may reflect atelectasis or pneumonia. Small pulmonary infarct cannot be excluded. Correlate clinically. Visualized portions of the inferior thyroid gland appear heterogeneous with enlargement of the left lower pole. Approximately 13 mm nodule noted in the left lower pole with associated peripheral calcification. Outpatient thyroid ultrasound recommended for further evaluation. Preliminary impression was provided by virtual radiologic. Study has been marked for PA review.
--- NOTE | 2016-10-29 12:32 | NM ---
COMPARISON: October 28, 2016. CT angiogram 07/23/2016 single-view chest 02/26/2016 ventilation-perfusion scan TECHNIQUE: 9.0 mCi technetium 99-m Xe-133 Gas. 3.9 mCI technetium 99-m MAA administered intravenously. FINDINGS: VENTILATION COMPONENT: Normal. PERFUSION COMPONENT: Heterogeneous distribution of radionuclide. No geographic, segmental, lobar abnormalities apparent on the present examination. IMPRESSION: Low probability ventilation perfusion scan for pulmonary embolism. No significant interval change compared to the prior examination(s). Prior bone scan 02/26/2016.
[2016-10-29 14:54] LABS: CK-MB < 0.22 ng/mL (0.0-3.38)
[2016-10-29] MEDS ORDERED: Pantoprazole 40 mg EC Tab PO STA (17:47)
[2016-10-29] MEDS ORDERED: Pantoprazole 40 mg EC Tab PO ONE (17:51)
--- NOTE | 2016-10-30 06:38 | CARD ---
APPROVED REPORT EKG Measurement Heart [id number] VA 150P27 [id number] <Conclusion> Normal sinus rhythm with sinus arrhythmia Normal ECG
[2016-10-30 08:17] VITALS: BP 94/59; PULSE 72; RESP 18; TEMP 98.4; O2SAT 96
[2016-10-30] MEDS: (Novolog) Insulin Aspart, Recombinant 100 u/ml 10 ml vial SC SCH (09:11)
[2016-10-30] MEDS ORDERED: Metoprolol Succinate 50 mg XL Tab PO SCH (10:00)
[2016-10-30] MEDS ORDERED: Pantoprazole 40 mg EC Tab PO SCH (10:00)
[2016-10-30] MEDS ORDERED: Metoprolol Succinate 12.5 mg XL PO SCH (10:00)
--- NOTE | 2016-10-30 10:03 | CP.PCM.HP ---
History of Present Illness - History of Present Illness History of Present Illness: pt came to er for chest pain sob hx of pace maker and stint hurts Present on Admission - Present on Admission Any Indicators Present on Admission: No Review of Systems - Review of Systems Systems not reviewed;Unavailable: Acuity of Condition - Constitutional Constitutional: Fatigue - EENT Eyes: As Per HPI Ears: As Per HPI Nose/Mouth/Throat: As Per HPI - Breasts Breasts: As Per HPI - Cardiovascular Cardiovascular: Chest Pain at Rest, Dyspnea, Palpitations - Respiratory Respiratory: Dyspnea - Gastrointestinal Gastrointestinal: As Per HPI - Genitourinary Genitourinary: As Per HPI - Reproductive: Female Reproductive:Female: As Per HPI - Menstruation Menstruation: As Per HPI - Musculoskeletal Musculoskeletal: Back Pain, Numbness Additional comments: hx of disc herniation raditing to lower ext - Integumentary Integumentary: As Per HPI - Neurological Neurological: Radicular Pain - Psychiatric Psychiatric: As Per HPI - Endocrine Endocrine: Polydipsia, Polyuria - Hematologic/Lymphatic Hematologic: As Per HPI Past Patient History - Infectious Disease Hx of Infectious Diseases: None - Past Medical History & Family History Past Medical History?: Yes - Past Social History Smoking Status: Never Smoked - CARDIAC Hx Cardia Arrhythmia: Yes Hx Hypertension: Yes Hx Pacemaker: (revealed device 2013 dr. Galan) - PULMONARY Hx Asthma: Yes - NEUROLOGICAL Hx Neurological Disorder: No - HEENT Hx HEENT Problems: No - RENAL Hx Kidney Stones: Yes - ENDOCRINE/METABOLIC Hx Endocrine Disorders: Yes Hx Diabetes Mellitus Type 2: Yes - HEMATOLOGICAL/ONCOLOGICAL Hx Blood Disorders: No - INTEGUMENTARY Hx Dermatological Problems: No - MUSCULOSKELETAL/RHEUMATOLOGICAL Hx Musculoskeletal Disorders: Yes Hx Falls: No Hx Herniated Disk: Yes - GASTROINTESTINAL Hx Gastrointestinal Disorders: Yes Hx Hemorrhoids: Yes - GENITOURINARY/GYNECOLOGICAL Hx Genitourinary Disorders: No - PSYCHIATRIC Hx Substance Use: No - SURGICAL HISTORY Hx Cholecystectomy: Yes Hx Coronary Stent: Yes - ANESTHESIA Hx Anesthesia: Yes Hx Anesthesia Reactions: No Meds Allergies/Adverse Reactions: Allergies Allergy/AdvReac Type Severity Reaction Status Date / Time aspirin Allergy URTICARIA Verified 10/28/16 19:56 Penicillins Allergy Verified 10/28/16 19:56 Physical Exam - Constitutional Appears: Non-toxic - Head Exam Head Exam: NORMAL INSPECTION - Eye Exam Eye Exam: Normal appearance Pupil Exam: PERRL - ENT Exam ENT Exam: Mucous Membranes Moist - Neck Exam Neck exam: Positive for: Full Rom - Respiratory Exam Respiratory Exam: Clear to Auscultation Bilateral - Cardiovascular Exam Cardiovascular Exam: REGULAR RHYTHM - GI/Abdominal Exam GI & Abdominal Exam: Normal Bowel Sounds - Rectal Exam Rectal Exam: NORMAL INSPECTION - Extremities Exam Extremities exam: Positive for: normal inspection - Back Exam Back exam: CVA tenderness (L) - Neurological Exam Neurological exam: Oriented x3 - Psychiatric Exam Psychiatric exam: Normal Mood - Skin Skin Exam: Normal Color Results - Vital Signs Recent Vital Signs: Last Vital Signs Temp 98.4 F 10/30/16 08:16 Pulse 72 10/30/16 08:16 Resp 18 10/30/16 08:16 BP 94/59 L 10/30/16 08:16 Pulse Ox 96 10/30/16 08:16 - Labs Result Diagrams: 10/29/16 04:55 10/28/16 20:44 Labs: Laboratory Results - last 24 hr 10/29/16 10/29/16 10/29/16 12:18 14:21 14:21 APTT 70 H D POC Glucose (mg/dL) 88 Total Creatine Kinase 31 CK-MB (Mass) < 0.22 Troponin I, Quant < 0.0120 10/29/16 10/29/16 10/30/16 18:06 21:30 06:29 APTT POC Glucose (mg/dL) 105 116 H 90 Total Creatine Kinase CK-MB (Mass) Troponin I, Quant Assessment & Plan - Assessment and Plan (Free Text) Assessment: CHEST PAIN PAINFUL STINT S/P PACE MAKER MORBID OBESITY BACK PAIN DJDD Plan: PT NOW FEELS GOOD EKG NORMAL PE RULED OUT CAN GO HOME F/U BY HER MD - Date & Time Date: 10/30/16 Time: 10:11
--- NOTE | 2016-10-30 11:05 | CP.PCM.PN ---
Subjective - Date & Time of Evaluation Date of Evaluation: 10/30/16 Time of Evaluation: 11:05 - Subjective Subjective: alert, awake, no sob or chest pains, NAD. Objective - Vital Signs/Intake and Output Vital Signs (last 24 hours): Temp Pulse Resp BP Pulse Ox 98.4 F 72 18 94/59 L 96 10/30/16 08:16 10/30/16 08:16 10/30/16 08:16 10/30/16 08:16 10/30/16 08:16 - Medications Medications: Current Medications Insulin Aspart (Novolog) 0 unit SC ACHS [facility] PRN Reason: Protocol Last Admin: 10/30/16 09:11 Dose: Not Given Lisinopril (Zestril) 5 mg PO DAILY [facility] Last Admin: 10/29/16 11:27 Dose: Not Given Metoprolol Succinate (Toprol Xl) 12.5 mg PO DAILY [facility] Pantoprazole Sodium (Protonix Ec Tab) 40 mg PO DAILY [facility] - Labs Labs: 10/29/16 04:55 PT 11.0 SECONDS (9.7-12.2) 10/28/16 00:06 INR 1.0 10/28/16 00:06 APTT 70 SECONDS (21-34) H D 10/29/16 14:21 Assessment and Plan - Assessment and Plan (Free Text) Assessment: Patient seen and examined. Alert and orientedx3, denies sob or chest pains. D/W DR Cano, will be discharged home today, she will see her data migration consultant on Wednesday as scheduled.
== END 2016-10-30 13:10 | disposition home or self-care (01) | DRG 143 ==
LOC: C.ER 19:31 → C.9E 23:48 → C.5T 10-29 17:52
PROVIDERS: ADMIT Internal Medicine; ATTEND Internal Medicine
DX: R07.9 Chest pain, unspecified (principal); Z68.42 Body mass index [BMI] 45.0-49.9, adult; I10 Essential (primary) hypertension; E11.9 Type 2 diabetes mellitus without complications; J45.909 Unspecified asthma, uncomplicated; W57.XXXA Bitten or stung by nonvenomous insect and other nonvenomous arthropods, initial encounter; Z95.0 Presence of cardiac pacemaker; E66.01 Morbid (severe) obesity due to excess calories

== ENCOUNTER 2017-02-02 01:17 | Observation (INO) | payer MEDICAID ==
[2017-02-02 01:18] VITALS: BMI 36.0
[2017-02-02] MEDS ORDERED: Sodium Chloride 0.9% 1,000 ML IV ONE ×2 (02:02→05:49)
--- NOTE | 2017-02-02 02:02 | C.PDOC ---
History Of Present Illness 41 year old female who presents to the ER with a complaint of left sided chest pain, lower back pain, and bilateral leg pain since yesterday. She also reports associated dizziness, described as spinning sensation. Patient reports history of herniated disks, and states the back pain radiates to her left leg and believes her left calf is swollen. Patient reports she took an advil liquid gel with no relief to pain. Patient note she has a poor appetite. Denies SOB, weakness, numbness to any extremity. Time Seen by Provider: 02/02/17 01:47 Chief Complaint (Nursing): Chest Pain History Per: Patient History/Exam Limitations: no limitations Onset/Duration Of Symptoms: Hrs Current Symptoms Are (Timing): Still Present Quality: "Pain" Associated Symptoms: denies: Nausea, Dyspnea, Diaphoresis, Syncope Modifying Factors: None Exacerbating Factors: None Alleviating Factors: None Recent travel outside of the [place]: No Past Medical History Reviewed: Historical Data, Nursing Documentation, Vital Signs Vital Signs: Last Vital Signs Temp 98.1 F 02/02/17 06:00 Pulse 67 02/02/17 06:00 Resp 20 02/02/17 06:00 BP 84/46 L 02/02/17 06:00 Pulse Ox 100 02/02/17 06:00 - Medical History PMH: Asthma, Back Problems (2 herniated disc), Cardia Arrhythmia, Diabetes, HTN , Kidney Stones Surgical History: Cholecystectomy, Coronary Stent Comment Only: Pacemaker (revealed device 2013 dr. Galan) - [facility] Procedures INSPECTION OF LOWER INTESTINAL TRACT, ENDO (05/13/16) Family History: States: Unknown Family Hx - Social History Hx Tobacco Use: No Hx Alcohol Use: No Hx Substance Use: No - Immunization History Hx Tetanus Toxoid Vaccination: No Hx Influenza Vaccination: Yes Hx Pneumococcal Vaccination: Yes Review Of Systems Constitutional: Negative for: Fever, Chills Cardiovascular: Positive for: Chest Pain. Negative for: Palpitations Respiratory: Negative for: Shortness of Breath Gastrointestinal: Negative for: Nausea, Vomiting, Abdominal Pain Genitourinary: Negative for: Dysuria Musculoskeletal: Positive for: Back Pain, Leg Pain Neurological: Positive for: Dizziness. Negative for: Weakness, Numbness, Headache Physical Exam - Physical Exam Appears: Non-toxic, Other (Morbidly Obese) Skin: Normal Color, Warm, Dry Head: Atraumatic, Normacephalic Eye(s): bilateral: Normal Inspection, PERRL, EOMI Nose: Normal Oral Mucosa: Moist Neck: Normal, Supple Chest: Symmetrical, Tenderness (Reproducible) Cardiovascular: Rhythm Regular Respiratory: Normal Breath Sounds, No Rales, No Rhonchi, No Wheezing Gastrointestinal/Abdominal: Soft Rectal: Hemorrhoids (external, nonthrombosed) Back: Normal Inspection, No Vertebral Tenderness, Paraspinal Tenderness (Diffuse ), No Straight Leg Raising Extremity: Tenderness (Bilateral legs tender to palpation, nonfocal), Pedal Edema (trace), No Deformity, Other ((+) Varicose veins, greater on left leg. (- ) Erythema, Palpable cords) Pulses: Left Dorsalis Pedis: Normal, Right Dorsalis Pedis: Normal Neurological/Psych: Oriented x3, Normal Speech, Normal Motor, Normal Sensation, Other (No focal deficits) Gait: Unable To Assess Other Neurological Findings: No Facial Palsy ED Course And Treatment - Laboratory Results Result Diagrams: 02/02/17 02:15 02/02/17 02:15 Lab Interpretation: No Acute Changes ECG: Interpreted By Me, Viewed By Me ECG Rhythm: Sinus Rhythm ECG Interpretation: No Acute Changes, No Changes From Prior (10/28/16) Rate From EC O2 Sat by Pulse Oximetry: 100 (room air) Pulse Ox Interpretation: Normal Medical Decision Making Medical Decision Making: Impression: 41 year old female with chest pain. Plan: * EKG * Blood work * CXR * Urinalysis * Plavix * Reglan * IV fluids Prior records reviewed: patient has had multiple ER visits with similar presentations, appears to be drug seeking. Last ER visit patient admitted for chest pain 10/30/16. Had CTA showing insufficient opacification of the pulmonary arteries to evaluate for pulmonary embolism. Small consolidative infiltrate or atelectasis in the left lower lobe. Cannot exclude the possibility of a small pulmonary infarct [facility] Reviewed: 01/07/2017 OXYCODONE-ACETAMINOPHEN 10-325 100 01/07/2017 ALPRAZOLAM 2 MG TABLET 60 12/03/2016 OXYCODONE-ACETAMINOPHEN 10-325 100 12/03/2016 ALPRAZOLAM 2 MG TABLET 60 11/05/2016 OXYCODONE-ACETAMINOPHEN 10-325 100 10/30/2016 ENDOCET 10-325 MG TABLET 100 Progress: PERC score is 0. HERMINIO score 1. 0250 RN informs me the patient complains of chest, back and leg pain. Order Percocet and Valium 0302 All labs reviewed, negative tropoinin, no leukocytosis or electrolyte abnormality. 0355 Patient states she is still feeling the same, pain is mildly improving. She reports feeling dizzy upon standing. Meclizine ordered. She wants more pain meds. Explain she needs to supply urine and await medication affect. UA shows 3+LE and WBCs. Patient has no symptoms. On re-eval, patient has no fever and she is asking to lay around til morning. CK -MB still pending 0540 Patient was sleeping and when awakes she is still feeling dizzy, BP is low. Will order additional fluids and contact hospitalist for observation admission. Disposition - Disposition Disposition: HOSPITALIZED Disposition Time: 05:55 Condition: STABLE - POA Present On Arrival: None - Clinical Impression Clinical Impression: Chest pain, Dizziness, Low back pain - Scribe Statement The provider has reviewed the documentation as recorded by the Scribsherry Teixeira All medical record entries made by the Renatoibsherry were at my direction and personally dictated by me. I have reviewed the chart and agree that the record accurately reflects my personal performance of the history, physical exam, medical decision making, and the department course for this patient. I have also personally directed, reviewed, and agree with the discharge instructions and disposition. Decision To Admit - Pt Status Changed To: Hospital Disposition Of: Observation - . Bed Request Type: Telemetry Admitting Physician: Bob Butler Patient Diagnosis: Chest pain, Dizziness, Low back pain
[2017-02-02] MEDS ORDERED: Sodium Chloride 0.9% 1,000 ML ONE ×2 (02:17→05:52)
[2017-02-02 02:18] LABS: BASO # 0.1 K/uL (0.0-0.2); EOS # 0.1 K/uL (0.0-0.7); EOS % 0.8 % (0.0-4.0); HEMATOCRIT 37.3 % (34.0-47.0); LYMPH % 30.8 % (20.0-40.0); MEAN CELL VOLUME 92.3 fL (81.0-99.0); MEAN CORPUSCULAR HEMOGLOBIN 31.8 pg (27.0-31.0); MEAN CORPUSCULAR HGB CONC 34.4 g/dL (33.0-37.0); MEAN PLATELET VOLUME 8.1 fL (7.2-11.7); MONO # 0.7 K/uL (0.0-0.8); MONO % 7.2 % (0.0-10.0); WHITE BLOOD COUNT 9.8 K/uL (4.8-10.8)
[2017-02-02 02:28] LABS: CHLORIDE 101 mmol/L (98-107); POTASSIUM 3.8 mmol/L (3.6-5.2); SODIUM 140 mmol/L (132-148)
[2017-02-02 02:30] LABS: ALB/GLOB RATIO 1.2 (1.0-2.1); AST/SGOT 18 U/L (14-36); BILIRUBIN,TOTAL 0.5 mg/dL (0.2-1.3); CARBON DIOXIDE 22 mmol/L (22-30); GFR AFRICAN-AMERICAN > 60; TOTAL PROTEIN 7.3 g/dL (6.3-8.3)
[2017-02-02 02:31] LABS: ALKALINE PHOSPHATASE 91 U/L (38-126); ALT/SGPT 23 U/L (9-52); BLOOD UREA NITROGEN 18 mg/dL (7-17); CALCIUM 8.8 mg/dl (8.6-10.4); GLUCOSE,RANDOM 88 mg/dL (65-105)
[2017-02-02] MEDS ORDERED: Oxycodone/Acetaminophen 5/325 mg Tab PO STA (02:52)
[2017-02-02] MEDS ORDERED: Oxycodone/Acetaminophen 5/325 mg Tab ONE (03:10)
[2017-02-02 04:10] LABS: RBC URINE 14 /hpf (0-3); URINE BACTERIA RARE (<OCC); URINE BILIRUBIN NEGATIVE (NEGATIVE); URINE BLOOD 1+ (NEGATIVE); URINE COLOR Yellow (YELLOW); URINE GLUCOSE (UA) NORMAL (Normal); URINE KETONE NEGATIVE (NEGATIVE); URINE LEUKOCYTE ESTERASE 3+ Leu/uL (Negative); URINE PROTEIN NEGATIVE (NEGATIVE); URINE UROBILINOGEN NORMAL mg/dL (0.2-1.0); WBC URINE 76 /hpf (0-5)
--- NOTE | 2017-02-02 07:07 | RAD ---
HISTORY: chest pain COMPARISON: Chest x-ray 07/23/2016 TECHNIQUE: Chest one view . FINDINGS: LUNGS: No focal consolidation is seen. PLEURA: No pleural effusion is identified. CARDIOVASCULAR: Heart size is within normal limits. OSSEOUS STRUCTURES: Small calcification noted in the region of the right superior rotator cuff insertion, likely calcific tendinopathy. VISUALIZED UPPER ABDOMEN: Unremarkable. OTHER FINDINGS: None. IMPRESSION: No acute cardiopulmonary process seen.
--- NOTE | 2017-02-02 07:33 | CP.PCM.PCO ---
Physician Communication Note - Physician Communication Note Physician Communication Note: Please see above.
[2017-02-02] MEDS: Oxycodone/Acetaminophen 5/325 mg Tab PO PRN (13:51)
--- NOTE | 2017-02-02 17:54 | CT ---
PROCEDURE: CT HEAD WITHOUT CONTRAST. HISTORY: dizziness/ heada manav COMPARISON: None available. TECHNIQUE: Axial computed tomography images were obtained through the head/brain without intravenous contrast. Radiation dose: Total exam DLP = 1312.66 mGy-cm. This CT exam was performed using one or more of the following dose reduction techniques: Automated exposure control, adjustment of the mA and/or kV according to patient size, and/or use of iterative reconstruction technique. FINDINGS: HEMORRHAGE: No intracranial hemorrhage. BRAIN: No mass effect or edema. No atrophy or chronic microvascular ischemic changes. VENTRICLES: Unremarkable. No hydrocephalus. CALVARIUM: Unremarkable. PARANASAL SINUSES: Unremarkable as visualized. No significant inflammatory changes. MASTOID AIR CELLS: Unremarkable as visualized. No inflammatory changes. OTHER FINDINGS: Left maxillary apical lucency involving 1st premolar with cortical breakthrough. IMPRESSION: No intracranial mass, hemorrhage or evidence of acute infarct. Left maxillary apical lucency/ abscess. Cortical breakthrough noted.
[2017-02-02] MEDS: (Lantus) Insulin Glargine, Recombinant SC SCH (21:27)
--- NOTE | 2017-02-02 22:19 | CP.PCM.HP ---
History of Present Illness - History of Present Illness History of Present Illness: CC: chest pain HPI: 41 year old female with PMH significant for HTn, Hyperlipidemia, Type 2 DM , as per pt she has CAD and she had stent placed by in [facility] long time ago, she is complaint with diet, medication and follow up. This morning while she was working when she suddenly developed left sided precordial chest pain not associated with disphoressi, dizziness, She also reports associated dizziness, described as spinning sensation. Patient reports history of herniated disks, and states the back pain radiates to her left leg and believes her left calf is swollen. Patient reports she took an advil liquid gel with no relief to pain. Patient note she has a poor appetite. Denies SOB, weakness, numbness to any extremity. Present on Admission - Present on Admission Any Indicators Present on Admission: No Review of Systems - Review of Systems Systems not reviewed;Unavailable: Respiratory Distress - Constitutional Constitutional: Fatigue, Lethargy - EENT Eyes: absent: As Per HPI, Blind Spots, Blurred Vision, Change in Vision, Decreased Night Vision, Diplopia, Discharge, Dry Eye, Exophthalmos, Floaters, Irritation, Itchy Eyes, Loss of Peripheral Vision, Pain, Photophobia, Requires Corrective Lenses, Sees Flashes, Spots in Vision, Tunnel Vision, Other Visual Disturbances, Loss of Vision, Other - Breasts Breasts: absent: As Per HPI, Change in Shape, Mass, Pain, Nipple Discharge, Nipple Inversion, Skin Changes, Swelling, Other - Cardiovascular Cardiovascular: Chest Pain, Chest Pain at Rest - Respiratory Respiratory: absent: As Per HPI, Cough, Dyspnea, Hemoptysis, Dyspnea on Exertion , Wheezing, Snoring, Stridor, Pain on Inspiration, Chest Congestion, Excessive Mucous Production, Change in Mucous Color, Pain with Coughing, Other - Gastrointestinal Gastrointestinal: absent: As Per HPI, Abdominal Pain, Belching, Bloating, Change in Bowel Habits, Change in Stool Character, Coffee Ground Emesis, Constipation, Cramping, Diarrhea, Dyspepsia, Dysphagia, Early Satiety, Excessive Flatus, Fecal Incontinence, Heartburn, Hematemesis, Hematochezia, Loose Stools, Melena, Nausea, Odynophagia, Temesmus, Vomiting, Other Past Patient History - Infectious Disease Hx of Infectious Diseases: None - Past Medical History & Family History Past Medical History?: Yes - Past Social History Smoking Status: Never Smoked - CARDIAC Hx Cardia Arrhythmia: Yes Hx Hypertension: Yes Hx Pacemaker: (revealed device 2013 dr. Galan) - PULMONARY Hx Asthma: Yes - NEUROLOGICAL Hx Neurological Disorder: No - HEENT Hx HEENT Problems: No - RENAL Hx Kidney Stones: Yes - ENDOCRINE/METABOLIC Hx Endocrine Disorders: Yes Hx Diabetes Mellitus Type 2: Yes - HEMATOLOGICAL/ONCOLOGICAL Hx Blood Disorders: No - INTEGUMENTARY Hx Dermatological Problems: No - MUSCULOSKELETAL/RHEUMATOLOGICAL Hx Musculoskeletal Disorders: Yes Hx Falls: No Hx Herniated Disk: Yes - GASTROINTESTINAL Hx Gastrointestinal Disorders: Yes Hx Hemorrhoids: Yes - GENITOURINARY/GYNECOLOGICAL Hx Genitourinary Disorders: No - PSYCHIATRIC Hx Substance Use: No - SURGICAL HISTORY Hx Cholecystectomy: Yes Hx Coronary Stent: Yes - ANESTHESIA Hx Anesthesia: Yes Hx Anesthesia Reactions: No Meds Home Medications: Home Medication List Medication Instructions Recorded Confirmed Type Doxycycline Hyclate 100 mg PO BID #14 capsule 02/04/17 Rx Allergies/Adverse Reactions: Allergies Allergy/AdvReac Type Severity Reaction Status Date / Time aspirin Allergy URTICARIA Verified 02/02/17 01:37 Penicillins Allergy Verified 02/02/17 01:37 Physical Exam - Constitutional Appears: In Acute Distress (morbidly obese woman in mild distress) Additional comments: morbidly obese young female in mild distress - Head Exam Head Exam: ATRAUMATIC, NORMAL INSPECTION, NORMOCEPHALIC - Eye Exam Eye Exam: EOMI, Normal appearance, PERRL Pupil Exam: NORMAL ACCOMODATION, PERRL - ENT Exam ENT Exam: Mucous Membranes Moist, Normal Exam - Neck Exam Neck exam: Positive for: Normal Inspection - Respiratory Exam Respiratory Exam: Rales, NORMAL BREATHING PATTERN Additional comments: wet crackles b/l rales in 1/3rd of feilds - Cardiovascular Exam Cardiovascular Exam: Irregular Rhythm, +S1, +S2, Systolic Murmur Additional comments: 4/6 ESM at aortic area S3 positive - GI/Abdominal Exam GI & Abdominal Exam: Normal Bowel Sounds, Soft. absent: Tenderness - Rectal Exam Rectal Exam: Deferred - Extremities Exam Extremities exam: Positive for: pedal edema Additional comments: +2 pitting edema - Back Exam Back exam: muscle spasm - Neurological Exam Neurological exam: Alert, CN II-XII Intact, Normal Gait, Oriented x3, Reflexes Normal - Psychiatric Exam Additional comments: she is forgetful - Skin Skin Exam: Dry, Intact, Normal Color, Warm Results - Vital Signs Recent Vital Signs: Last Vital Signs Temp 97.6 F 02/02/17 20:00 Pulse 67 02/02/17 20:00 Resp 16 02/02/17 20:00 BP 103/65 02/02/17 20:00 Pulse Ox 98 02/02/17 20:00 - Labs Result Diagrams: 02/02/17 02:15 02/02/17 02:15 Labs: Laboratory Results - last 24 hr 02/02/17 02/02/17 02/02/17 01:30 02:15 02:15 WBC 9.8 RBC 4.04 Hgb 12.8 Hct 37.3 MCV 92.3 MCH 31.8 H MCHC 34.4 RDW 13.0 Plt Count 269 MPV 8.1 Neut % (Auto) 60.2 Lymph % (Auto) 30.8 Douglas % (Auto) 7.2 Eos % (Auto) 0.8 Baso % (Auto) 1.0 Neut # 5.9 Lymph # 3.0 Douglas # 0.7 Eos # 0.1 Baso # 0.1 Sodium 140 Potassium 3.8 Chloride 101 Carbon Dioxide 22 Anion Gap 20 BUN 18 H Creatinine 0.7 Est GFR ( Amer) > 60 Est GFR (Non-Af Amer) > 60 POC Glucose (mg/dL) 108 Random Glucose 88 Calcium 8.8 Total Bilirubin 0.5 AST 18 ALT 23 Alkaline Phosphatase 91 Total Creatine Kinase CK-MB (Mass) Troponin I < 0.0120 Troponin I, Quant NT-Pro-B Natriuret Pep 83.6 Total Protein 7.3 Albumin 4.0 Globulin 3.3 Albumin/Globulin Ratio 1.2 Urine Color Urine Clarity Urine pH Ur Specific [place] Urine Protein Urine Glucose (UA) Urine Ketones Urine Blood Urine Nitrate Urine Bilirubin Urine Urobilinogen Ur Leukocyte Esterase Urine WBC (Auto) Urine RBC (Auto) Ur Squamous Epith Cells Urine Bacteria Urine HCG, Qual 02/02/17 02/02/17 02/02/17 04:02 05:56 06:00 WBC RBC Hgb Hct MCV MCH MCHC RDW Plt Count MPV Neut % (Auto) Lymph % (Auto) Douglas % (Auto) Eos % (Auto) Baso % (Auto) Neut # Lymph # Douglas # Eos # Baso # Sodium Potassium Chloride Carbon Dioxide Anion Gap BUN Creatinine Est GFR ( Amer) Est GFR (Non-Af Amer) POC Glucose (mg/dL) 92 Random Glucose Calcium Total Bilirubin AST ALT Alkaline Phosphatase Total Creatine Kinase CK-MB (Mass) 0.31 Troponin I Troponin I, Quant NT-Pro-B Natriuret Pep Total Protein Albumin Globulin Albumin/Globulin Ratio Urine Color Yellow Urine Clarity Hazy Urine pH 5.0 Ur Specific [place] 1.025 Urine Protein Negative Urine Glucose (UA) Normal Urine Ketones Negative Urine Blood 1+ H Urine Nitrate Negative Urine Bilirubin Negative Urine Urobilinogen Normal Ur Leukocyte Esterase 3+ H Urine WBC (Auto) 76 H Urine RBC (Auto) 14 H Ur Squamous Epith Cells 10 H Urine Bacteria Rare Urine HCG, Qual 02/02/17 02/02/17 02/02/17 07:29 13:16 16:16 WBC RBC Hgb Hct MCV MCH MCHC RDW Plt Count MPV Neut % (Auto) Lymph % (Auto) Douglas % (Auto) Eos % (Auto) Baso % (Auto) Neut # Lymph # Douglas # Eos # Baso # Sodium Potassium Chloride Carbon Dioxide Anion Gap BUN Creatinine Est GFR ( Amer) Est GFR (Non-Af Amer) POC Glucose (mg/dL) 94 Random Glucose Calcium Total Bilirubin AST ALT Alkaline Phosphatase Total Creatine Kinase CK-MB (Mass) Troponin I < 0.0120 Troponin I, Quant NT-Pro-B Natriuret Pep Total Protein Albumin Globulin Albumin/Globulin Ratio Urine Color Urine Clarity Urine pH Ur Specific [place] Urine Protein Urine Glucose (UA) Urine Ketones Urine Blood Urine Nitrate Urine Bilirubin Urine Urobilinogen Ur Leukocyte Esterase Urine WBC (Auto) Urine RBC (Auto) Ur Squamous Epith Cells Urine Bacteria Urine HCG, Qual Negative 02/02/17 02/02/17 21:09 21:27 WBC RBC Hgb Hct MCV MCH MCHC RDW Plt Count MPV Neut % (Auto) Lymph % (Auto) Douglas % (Auto) Eos % (Auto) Baso % (Auto) Neut # Lymph # Douglas # Eos # Baso # Sodium Potassium Chloride Carbon Dioxide Anion Gap BUN Creatinine Est GFR ( Amer) Est GFR (Non-Af Amer) POC Glucose (mg/dL) 80 Random Glucose Calcium Total Bilirubin AST ALT Alkaline Phosphatase Total Creatine Kinase 41 CK-MB (Mass) < 0.22 Troponin I Troponin I, Quant < 0.0120 NT-Pro-B Natriuret Pep Total Protein Albumin Globulin Albumin/Globulin Ratio Urine Color Urine Clarity Urine pH Ur Specific [place] Urine Protein Urine Glucose (UA) Urine Ketones Urine Blood Urine Nitrate Urine Bilirubin Urine Urobilinogen Ur Leukocyte Esterase Urine WBC (Auto) Urine RBC (Auto) Ur Squamous Epith Cells Urine Bacteria Urine HCG, Qual Assessment & Plan (1) Acute exacerbation of CHF (congestive heart failure) Assessment and Plan: rule out ACS in a morbidly obese Hypertensive pt with PMH of Valvular Heart disease Status: Acute (2) Dementia Status: Acute (3) Diabetes Status: Acute (4) Chest pain Status: Resolved (5) Accelerated hypertension Status: Acute - Assessment and Plan (Free Text) Plan: Admit Intake out put Cardio Eval monitor pt
[2017-02-03] MEDS: Oxycodone/Acetaminophen 5/325 mg Tab PO PRN ×2 (01:58→13:41)
[2017-02-03 07:38] VITALS: RESP 20
[2017-02-03] MEDS: Metoprolol Succinate 12.5 mg XL PO SCH (09:54)
[2017-02-03] MEDS: Rosuvastatin Calcium 2.5 mg Tab PO SCH (09:54)
[2017-02-03] MEDS ORDERED: Pneumococcal 23-Valent Vaccine IM ONE (10:00)
[2017-02-03] MEDS ORDERED: Influenza Vaccine 60 mcg/0.5 mL SYR (4YR UP) IM ONE (10:00)
--- NOTE | 2017-02-03 12:50 | CARD ---
APPROVED REPORT EXAM: Two-dimensional and M-mode echocardiogram with Doppler and color Doppler. Other Information Quality : TDSRhythm : NSR INDICATION Dizziness and Vertigo Chest Pain 2D DIMENSIONS IVSd1.1 (0.7-1.1cm)LVDd5.6 (3.9-5.9cm) PWd1.0 (0.7-1.1cm)LVDs3.3 (2.5-4.0cm) FS (%) 41.2 %LVEF (%)71.4 (>50%) M-Mode DIMENSIONS Left Atrium (MM)3.22 (2.5-4.0cm)Aortic Root3.51 (2.2-3.7cm) Aortic Cusp Exc.2.29 (1.5-2.0cm) Mitral Valve MV E Zbzmthgs746.9cm/sMV A Vmulomra36.7cm/sE/A ratio1.6 TDI E/Lateral E'0.0E/Medial E'0.0 Tricuspid Valve TR Peak Axfdmhat802on/sTR Peak Gr.[id number] <Conclusion> very tds. poor window. lv size & systolic function appears normal. mitral is probably normal. no pericardial effusion. mild tr. can not comment on anyother structure or function. suggest bella.
--- NOTE | 2017-02-03 14:38 | VASCLAB ---
PROCEDURE: Lower Extremity Venous Duplex Exam. HISTORY: pain to legs, left side worse, varicose veins PRIORS: None. TECHNIQUE: Bilateral common femoral, femoral, popliteal and posterior tibial, peroneal and great saphenous veins were evaluated. Flow was assessed with color Doppler, compressibility, assessment of phasic flow and augmentation response. Report prepared by Huber Magana, SHANTE, RVT FINDINGS: RIGHT: 1. Common Femoral Vein: 1.1. Compressibility - Fully compressible: Thrombus - None : Flow - Phasic: Augmentation -Normal: Reflux - None. 2. Femoral Vein: 2.1. Compressibility - Fully compressible: Thrombus - None : Flow - Phasic: Augmentation -Normal: Reflux - None. 3. Popliteal Vein: 3.1. Compressibility - Fully compressible: Thrombus - None : Flow - Phasic: Augmentation -Normal: Reflux - None. 4. Posterior Tibial Vein: 4.1. Compressibility - Fully compressible: Thrombus - None: Flow - Phasic: Augmentation -Normal: Reflux - None. 5. Peroneal Vein: 5.1. Compressibility - Fully compressible: Thrombus - None: Flow - Phasic: Augmentation -Normal: Reflux - None. 6. Great Saphenous Vein: 6.1. Compressibility - Fully compressible: Thrombus - None: Flow - Phasic: Augmentation - Normal: Reflux - None. LEFT: 1. Common Femoral Vein: 1.1. Compressibility - Fully compressible: Thrombus - None: Flow - Phasic: Augmentation -Normal: Reflux - None. 2. Femoral Vein: 2.1. Compressibility - Fully compressible: Thrombus - None: Flow - Phasic: Augmentation -Normal: Reflux - None. 3. Popliteal Vein: 3.1. Compressibility - Fully compressible: Thrombus - None : Flow - Phasic: Augmentation -Normal: Reflux - None. 4. Posterior Tibial Vein: 4.1. Compressibility - Fully compressible: Thrombus - None: Flow - Phasic: Augmentation -Normal: Reflux - None. 5. Peroneal Vein: 5.1. Compressibility - Fully compressible: Thrombus - None: Flow - Phasic: Augmentation -Normal: Reflux - None. 6. Great Saphenous Vein: 6.1. Compressibility - Fully compressible: Thrombus - None: Flow - Phasic: Augmentation - Normal: Reflux - None. OTHER FINDINGS: Right: None significant. Left: None significant. IMPRESSION: Right: No evidence of deep or superficial vein thrombosis of the right lower extremity. Normal valve function noted of the right side. Left: No evidence of deep or superficial vein thrombosis of the left lower extremity. Normal valve function noted of the left side.
--- NOTE | 2017-02-03 14:45 | VASCLAB ---
PROCEDURE: HISTORY: Dizziness COMPARISON: None available. TECHNIQUE: Grayscale and duplex Doppler evaluation of the cervical carotid and vertebral arteries were performed. The common carotid, carotid bifurcations and cervical Internal Carotid Artery (ICA) and proximal External Carotid Artery (ECA) were evaluated. The vertebral arteries were evaluated for gross patency and flow direction. Report prepared by JARRELL Henley FINDINGS: RIGHT CAROTID ARTERIES: 1. Common Carotid Artery: No significant focal plaque formation of the right common carotid artery. Maximum Peak Systolic velocity: 96 cm/sec: End-diastolic velocity 25 cm/sec. 2. Carotid Bifurcation: plaque formation. Maximum Peak Systolic velocity: 80 cm/sec: End-diastolic velocity 22 cm/sec. 3. Internal Carotid Artery: Plaque description: 3.1. Proximal Segment: Peak systolic velocity 53 cm/sec: End-diastolic velocity 27 cm/sec - % stenosis 0-15% 3.2. Middle Segment: Peak systolic velocity 72 cm/sec: End-diastolic velocity 35 cm/sec - % stenosis 0-15% 3.3. Distal Segment: Peak systolic velocity 51 cm/sec: End-diastolic velocity 29 cm/sec - % stenosis 0-15% 4. External Carotid Artery: No significant focal plaque formation. Peak systolic velocity 95 cm/sec 5. ICA/CCA Ratio: 0.8 LEFT CAROTID ARTERIES: 1. Common Carotid Artery: No significant focal plaque formation of the left common carotid artery. Maximum Peak Systolic velocity: 99 cm/sec: End-diastolic velocity 30 cm/sec. 2. Carotid Bifurcation: plaque formation. Maximum Peak Systolic velocity: 47 cm/sec: End-diastolic velocity 19 cm/sec. 3. Internal Carotid Artery: Plaque description: 3.1. Proximal Segment: Peak systolic velocity 90 cm/sec: End-diastolic velocity 47 cm/sec - % stenosis 0-15% 3.2. Middle Segment: Peak systolic velocity 80 cm/sec: End-diastolic velocity 46 cm/sec - % stenosis 0-15% 3.3. Distal Segment: Peak systolic velocity 89 cm/sec: End-diastolic velocity 39 cm/sec - % stenosis 0-15% 4. External Carotid Artery: No significant focal plaque formation. Peak systolic velocity 72 cm/sec 5. ICA/CCA Ratio: 1.2 VERTEBRAL ARTERIES: 1. Right Vertebral Artery: The right vertebral artery flow direction is antegrade. 2. Left Vertebral Artery: The left vertebral artery flow direction is antegrade. OTHER FINDINGS: 1. Right Brachial Blood pressure: Unable to obtain 2. Left Brachial Blood pressure: Unable to obtain IMPRESSION: RIGHT: Duplex scan does not suggest hemodynamically significant stenosis of the right extracranial carotid arteries. LEFT: Duplex scan does not suggest hemodynamically significant stenosis of the left extracranial carotid arteries.
--- NOTE | 2017-02-03 17:37 | CP.PCM.CON ---
<EDDYBLAINE - Last Filed: 02/03/17 17:20> History of Present Illness - History of Present Illness History of Present Illness: Blaine Rico DO PGY1 - Cardiology Progress Note for Dr. Patel Consultation for chest pain HPI: 41 yo F with PMH significant for CAD s/p stent, HTN, HLD, DM, and morbid obesity presented complaining of chest pain, associated with dizziness. Was also complaining of back pain radiating to left leg, and bilateral leg pain. Pain started while she was sitting at home; felt sharp; in mid chest; did not radiate; lasted about 30 minutes and resolved spontaneously; no particular remitting or exacerbating factors. Currently, she denies any CP at rest, SOB, RODRIGUEZ. Continues to have back pain and dizziness. PMH: CAD s/p stent 1 year ago, HTN, DM, and morbid obesity PSH: Cholecystectomy Meds: See MAR Soc: Patient denies tobacco, alcohol, or illicits All: ASA, penicillins ROS: As above. Past Patient History - Infectious Disease Hx of Infectious Diseases: None - Past Medical History & Family History Past Medical History?: Yes - Past Social History Smoking Status: Never Smoked - CARDIAC Hx Cardia Arrhythmia: Yes Hx Hypertension: Yes Hx Pacemaker: (revealed device 2013 dr. Galan) - PULMONARY Hx Asthma: Yes - NEUROLOGICAL Hx Neurological Disorder: No - HEENT Hx HEENT Problems: No - RENAL Hx Kidney Stones: Yes - ENDOCRINE/METABOLIC Hx Endocrine Disorders: Yes Hx Diabetes Mellitus Type 2: Yes - HEMATOLOGICAL/ONCOLOGICAL Hx Blood Disorders: No - INTEGUMENTARY Hx Dermatological Problems: No - MUSCULOSKELETAL/RHEUMATOLOGICAL Hx Musculoskeletal Disorders: Yes Hx Falls: No Hx Herniated Disk: Yes - GASTROINTESTINAL Hx Gastrointestinal Disorders: Yes Hx Hemorrhoids: Yes - GENITOURINARY/GYNECOLOGICAL Hx Genitourinary Disorders: No - PSYCHIATRIC Hx Substance Use: No - SURGICAL HISTORY Hx Cholecystectomy: Yes Hx Coronary Stent: Yes - ANESTHESIA Hx Anesthesia: Yes Hx Anesthesia Reactions: No Meds Allergies/Adverse Reactions: Allergies Allergy/AdvReac Type Severity Reaction Status Date / Time aspirin Allergy URTICARIA Verified 02/02/17 01:37 Penicillins Allergy Verified 02/02/17 01:37 - Medications Medications: Current Medications Ciprofloxacin (Cipro) 250 mg PO BID [facility] Last Admin: 02/03/17 17:06 Dose: 250 mg Docusate Sodium (Colace) 100 mg PO BID [facility] Last Admin: 02/03/17 17:06 Dose: 100 mg Doxycycline Hyclate (Doryx) 100 mg PO Q12H [facility] Famotidine (Pepcid) 20 mg PO BID [facility] Last Admin: 02/03/17 17:06 Dose: 20 mg Heparin Sodium (Porcine) (Heparin) 5,000 units SC Q8 [facility] Last Admin: 02/03/17 13:41 Dose: 5,000 units Ibuprofen (Motrin Tab) 600 mg PO TID [facility] Insulin Glargine (Lantus) 8 unit SC HS [facility] Last Admin: 02/02/17 21:27 Dose: Not Given Lisinopril (Zestril) 5 mg PO DAILY [facility] Last Admin: 02/03/17 09:54 Dose: 5 mg Meclizine HCl (Antivert) 25 mg PO TID PRN PRN Reason: Dizziness Last Admin: 02/03/17 09:54 Dose: 25 mg Metformin HCl (Glucophage) 850 mg PO DAILY [facility] Last Admin: 02/03/17 09:54 Dose: 850 mg Metoprolol Succinate (Toprol Xl) 12.5 mg PO DAILY [facility] Last Admin: 02/03/17 09:54 Dose: 12.5 mg Oxycodone/Acetaminophen (Percocet 5/325 Mg Tab) 1 tab PO Q12H PRN PRN Reason: Pain, severe (8-10) Stop: 02/05/17 14:01 Last Admin: 02/03/17 13:41 Dose: 1 tab Rosuvastatin Calcium (Crestor) 2.5 mg PO DAILY [facility] Last Admin: 02/03/17 09:54 Dose: 2.5 mg Physical Exam - Constitutional Appears: Non-toxic, No Acute Distress Additional comments: Morbidly obese - Head Exam Head Exam: ATRAUMATIC, NORMOCEPHALIC - Eye Exam Eye Exam: EOMI, Normal appearance - ENT Exam ENT Exam: Mucous Membranes Moist - Neck Exam Neck exam: Positive for: Full Rom, Normal Inspection - Respiratory Exam Respiratory Exam: Clear to Auscultation Bilateral. absent: Rales, Rhonchi, Wheezes - Cardiovascular Exam Cardiovascular Exam: RRR, +S1, +S2 Additional comments: Anterior chest wall/costochondral tenderness, which she claims is the same pain she felt yesterday - GI/Abdominal Exam GI & Abdominal Exam: Soft. absent: Tenderness - Extremities Exam Extremities exam: Negative for: calf tenderness, pedal edema - Neurological Exam Neurological exam: Alert, Oriented x3 - Psychiatric Exam Psychiatric exam: Normal Affect, Normal Mood - Skin Skin Exam: Dry, Intact Results - Vital Signs Recent Vital Signs: Last Vital Signs Temp 97.8 F 02/03/17 15:00 Pulse 69 02/03/17 16:16 Resp 20 02/03/17 15:00 BP 101/64 02/03/17 15:00 Pulse Ox 95 02/03/17 15:00 - Labs Result Diagrams: 02/02/17 02:15 02/02/17 02:15 Labs: Laboratory Results - last 24 hr 02/02/17 02/02/17 02/03/17 21:09 21:27 06:30 POC Glucose (mg/dL) 80 82 Total Creatine Kinase 41 CK-MB (Mass) < 0.22 Troponin I, Quant < 0.0120 02/03/17 11:13 POC Glucose (mg/dL) 90 Total Creatine Kinase CK-MB (Mass) Troponin I, Quant Assessment & Plan (1) Chest pain Assessment and Plan: Pain that patient was complaining of was reproducible with palpation of anterior chest wall on exam; likely costochondritis - Ordered ESR and CRP to confirm inflammatory etiology of pain - Ordered motrin 600mg TID EKG shows no changes from prior EKG Echo complete, normal function; poor visualization due to body habitus; consider KIRSTEN if further workup is warranted Troponins negative x3 BNP normal Status: Chronic (2) CAD (coronary artery disease) Assessment and Plan: Stable Continue BB, CHRISTOPHER, Plavix, Statin; patient is allergic to ASA Status: Acute (3) HLD (hyperlipidemia) Assessment and Plan: Continue statin Status: Acute (4) Accelerated hypertension Assessment and Plan: BP stable since admission Continue BB, ACEi Status: Acute (5) Diabetes Assessment and Plan: Stable on current regimen Management as per primary team Status: Acute <JorgeShlomo - Last Filed: 03/04/17 00:17> Results - Vital Signs Recent Vital Signs: Last Vital Signs Temp 97.8 F 02/04/17 07:05 Pulse 66 02/04/17 09:40 Resp 20 02/04/17 07:05 BP 108/71 02/04/17 09:40 Pulse Ox 93 L 02/04/17 07:05 - Labs Result Diagrams: 02/02/17 02:15 02/02/17 02:15 Attending/Attestation - Attestation I have personally seen and examined this patient.: Yes I have fully participated in the care of the patient.: Yes I have reviewed all pertinent clinical information: Yes
[2017-02-03] MEDS: (Lantus) Insulin Glargine, Recombinant SC SCH (22:27)
--- NOTE | 2017-02-03 22:54 | CP.PCM.PN ---
Subjective - Date & Time of Evaluation Date of Evaluation: 02/03/17 Time of Evaluation: 20:10 - Subjective Subjective: Pt seen and examined at bedside, pt brenda any chest pain, Mi has been ruled out , cardiac enzymes are neg, Echo is neg, Pt is feeling better, pt is for possile discharge tommorow Objective - Vital Signs/Intake and Output Vital Signs (last 24 hours): Temp Pulse Resp BP Pulse Ox 97.8 F 79 20 101/64 95 02/03/17 15:00 02/03/17 20:55 02/03/17 15:00 02/03/17 15:00 02/03/17 15:00 Intake and Output: 02/03/17 02/04/17 18:59 06:59 Intake Total 700 Balance 700 - Medications Medications: Current Medications Ciprofloxacin (Cipro) 250 mg PO BID [facility] Last Admin: 02/03/17 17:06 Dose: 250 mg Docusate Sodium (Colace) 100 mg PO BID [facility] Last Admin: 02/03/17 17:06 Dose: 100 mg Doxycycline Hyclate (Doryx) 100 mg PO Q12H [facility] Famotidine (Pepcid) 20 mg PO BID [facility] Last Admin: 02/03/17 17:06 Dose: 20 mg Heparin Sodium (Porcine) (Heparin) 5,000 units SC Q8 [facility] Last Admin: 02/03/17 22:34 Dose: 5,000 units Ibuprofen (Motrin Tab) 600 mg PO TID [facility] Insulin Glargine (Lantus) 8 unit SC HS [facility] Last Admin: 02/03/17 22:27 Dose: Not Given Lisinopril (Zestril) 5 mg PO DAILY [facility] Last Admin: 02/03/17 09:54 Dose: 5 mg Meclizine HCl (Antivert) 25 mg PO TID PRN PRN Reason: Dizziness Last Admin: 02/03/17 09:54 Dose: 25 mg Metformin HCl (Glucophage) 850 mg PO DAILY [facility] Last Admin: 02/03/17 09:54 Dose: 850 mg Metoprolol Succinate (Toprol Xl) 12.5 mg PO DAILY [facility] Last Admin: 02/03/17 09:54 Dose: 12.5 mg Oxycodone/Acetaminophen (Percocet 5/325 Mg Tab) 1 tab PO Q12H PRN PRN Reason: Pain, severe (8-10) Stop: 02/05/17 14:01 Last Admin: 02/03/17 13:41 Dose: 1 tab Rosuvastatin Calcium (Crestor) 2.5 mg PO DAILY [facility] Last Admin: 02/03/17 09:54 Dose: 2.5 mg - Labs Labs: 02/02/17 02:15 02/02/17 02:15 - Constitutional Appears: No Acute Distress - Head Exam Head Exam: ATRAUMATIC, NORMAL INSPECTION, NORMOCEPHALIC - Eye Exam Eye Exam: EOMI, Normal appearance, PERRL Pupil Exam: NORMAL ACCOMODATION, PERRL - Respiratory Exam Respiratory Exam: Clear to Ausculation Bilateral, NORMAL BREATHING PATTERN - Cardiovascular Exam Cardiovascular Exam: REGULAR RHYTHM, +S1, +S2. absent: Murmur - GI/Abdominal Exam GI & Abdominal Exam: Soft, Normal Bowel Sounds. absent: Tenderness Assessment and Plan (1) Acute exacerbation of CHF (congestive heart failure) Status: Acute (2) Dementia Status: Acute (3) Diabetes Status: Acute (4) Chest pain Status: Chronic (5) Accelerated hypertension Status: Acute
[2017-02-04] MEDS ORDERED: Sodium Chloride 0.9% 1,000 ML IV ONE (00:05)
[2017-02-04] MEDS ORDERED: Sodium Chloride 0.9% 1,000 ML IV SCH (00:15)
[2017-02-04] MEDS: Oxycodone/Acetaminophen 5/325 mg Tab PO PRN (05:12)
--- NOTE | 2017-02-04 08:10 | CP.PCM.DIS ---
Provider - Provider Date of Admission: 02/02/17 05:57 Attending physician: Kwabena Ruelas MD Time Spent in preparation of Discharge (in minutes): 56 Diagnosis - Discharge Diagnosis (1) Acute exacerbation of CHF (congestive heart failure) Status: Acute Comment: NON coronary chest pain (2) Dementia Status: Acute (3) Diabetes Status: Acute (4) Chest pain Status: Resolved (5) Accelerated hypertension Status: Acute Hospital Course - Lab Results Lab Results: Micro Results 02/02/17 21:23 Naris MRSA Culture - Final MRSA NOT DETECTED 02/02/17 08:25 [facility] MRSA Culture (Admit) - Final MRSA NOT DETECTED Most Recent Lab Values WBC 9.8 K/uL (4.8-10.8) 02/02/17 02:15 RBC 4.04 Mil/uL (3.80-5.20) 02/02/17 02:15 Hgb 12.8 g/dL (11.0-16.0) 02/02/17 02:15 Hct 37.3 % (34.0-47.0) 02/02/17 02:15 MCV 92.3 fL (81.0-99.0) 02/02/17 02:15 MCH 31.8 pg (27.0-31.0) H 02/02/17 02:15 MCHC 34.4 g/dL (33.0-37.0) 02/02/17 02:15 RDW 13.0 % (11.5-14.5) 02/02/17 02:15 Plt Count 269 K/uL (130-400) 02/02/17 02:15 MPV 8.1 fL (7.2-11.7) 02/02/17 02:15 Neut % (Auto) 60.2 % (50.0-75.0) 02/02/17 02:15 Lymph % (Auto) 30.8 % (20.0-40.0) 02/02/17 02:15 [place] % (Auto) 7.2 % (0.0-10.0) 02/02/17 02:15 Eos % (Auto) 0.8 % (0.0-4.0) 02/02/17 02:15 Baso % (Auto) 1.0 % (0.0-2.0) 02/02/17 02:15 Neut # 5.9 K/uL (1.8-7.0) 02/02/17 02:15 Lymph # 3.0 K/uL (1.0-4.3) 02/02/17 02:15 [place] # 0.7 K/uL (0.0-0.8) 02/02/17 02:15 Eos # 0.1 K/uL (0.0-0.7) 02/02/17 02:15 Baso # 0.1 K/uL (0.0-0.2) 02/02/17 02:15 ESR 33 mm/hr (0-20) H 02/03/17 17:12 Sodium 140 mmol/L (132-148) 02/02/17 02:15 Potassium 3.8 mmol/L (3.6-5.2) 02/02/17 02:15 Chloride 101 mmol/L (98-107) 02/02/17 02:15 Carbon Dioxide 22 mmol/L (22-30) 02/02/17 02:15 Anion Gap 20 (10-20) 02/02/17 02:15 BUN 18 mg/dL (7-17) H 02/02/17 02:15 Creatinine 0.7 MG/DL (0.7-1.2) 02/02/17 02:15 Est GFR ( Amer) > 60 02/02/17 02:15 Est GFR (Non-Af Amer) > 60 02/02/17 02:15 POC Glucose (mg/dL) 97 mg/dL (65-110) 02/04/17 05:57 Random Glucose 88 mg/dL (65-105) 02/02/17 02:15 Calcium 8.8 mg/dl (8.6-10.4) 02/02/17 02:15 Total Bilirubin 0.5 mg/dL (0.2-1.3) 02/02/17 02:15 AST 18 U/L (14-36) 02/02/17 02:15 ALT 23 U/L (9-52) 02/02/17 02:15 Alkaline Phosphatase 91 U/L (38-126) 02/02/17 02:15 Total Creatine Kinase 41 U/L (30-135) 02/02/17 21:27 CK-MB (Mass) < 0.22 ng/mL (0.0-3.38) 02/02/17 21:27 Troponin I < 0.0120 ng/mL (0.00-0.120) 02/02/17 13:16 Troponin I, Quant < 0.0120 ng/mL (0.00-0.120) 02/02/17 21:27 C-React Prot High Sens 8.67 mg/L (1.00-3.00) H 02/03/17 17:12 NT-Pro-B Natriuret Pep 83.6 pg/mL (0-450) 02/02/17 02:15 Total Protein 7.3 g/dL (6.3-8.3) 02/02/17 02:15 Albumin 4.0 g/dL (3.5-5.0) 02/02/17 02:15 Globulin 3.3 gm/dL (2.2-3.9) 02/02/17 02:15 Albumin/Globulin Ratio 1.2 (1.0-2.1) 02/02/17 02:15 Urine Color Yellow (YELLOW) 02/02/17 04:02 Urine Clarity Hazy (Clear) 02/02/17 04:02 Urine pH 5.0 (5.0-8.0) 02/02/17 04:02 Ur Specific [place] 1.025 (1.003-1.030) 02/02/17 04:02 Urine Protein Negative mg/dL (NEGATIVE) 02/02/17 04:02 Urine Glucose (UA) Normal mg/dL (Normal) 02/02/17 04:02 Urine Ketones Negative mg/dL (NEGATIVE) 02/02/17 04:02 Urine Blood 1+ (NEGATIVE) H 02/02/17 04:02 Urine Nitrate Negative (NEGATIVE) 02/02/17 04:02 Urine Bilirubin Negative (NEGATIVE) 02/02/17 04:02 Urine Urobilinogen Normal mg/dL (0.2-1.0) 02/02/17 04:02 Ur Leukocyte Esterase 3+ Sara/uL (Negative) H 02/02/17 04:02 Urine WBC (Auto) 76 /hpf (0-5) H 02/02/17 04:02 Urine RBC (Auto) 14 /hpf (0-3) H 02/02/17 04:02 Ur Squamous Epith Cells 10 /hpf (0-5) H 02/02/17 04:02 Urine Bacteria Rare (<OCC) 02/02/17 04:02 Urine HCG, Qual Negative (NEGATIVE) 02/02/17 07:29 - Hospital Course Hospital Course: Pt is discharged today, free of chest pain, RI was ruled out Pt is advised for weight loss follow up with PMD Discharge Exam - Head Exam Head Exam: ATRAUMATIC, NORMAL INSPECTION, NORMOCEPHALIC - Eye Exam Eye Exam: EOMI, Normal appearance, PERRL Pupil Exam: NORMAL ACCOMODATION, PERRL - ENT Exam ENT Exam: Mucous Membranes Moist - Respiratory Exam Respiratory Exam: Chest Wall Tenderness, NORMAL BREATHING PATTERN - Cardiovascular Exam Cardiovascular Exam: REGULAR RHYTHM, +S1, +S2 - GI/Abdominal Exam GI & Abdominal Exam: Normal Bowel Sounds Discharge Plan - Discharge Medications Prescriptions: Doxycycline Hyclate 100 mg PO BID #14 capsule - Follow Up Plan Condition: STABLE Disposition: HOME/ ROUTINE Instructions: Chest Pain (DC), Chest Pain (GEN), Diabetes Mellitus Type 2 in Adults (DC), Diabetes Mellitus Type 2 in Adults (GEN), Dizziness (GEN) Additional Instructions: Please f/u with PMD in 3- 5 days Continue medication as per Med. Rec. Please f/u with Dr. Montero office in 1 week Please f/u with A Dentist in 1 week Referrals: Kwabena Ruelas MD [Staff Provider] - Ludmila Montero MD [Staff Provider] -
[2017-02-04 08:16] VITALS: TEMP 97.8; O2SAT 93
[2017-02-04] MEDS: Rosuvastatin Calcium 2.5 mg Tab PO SCH (09:41)
[2017-02-04] MEDS: Metoprolol Succinate 12.5 mg XL PO SCH (09:43)
[2017-02-04 11:15] VITALS: BP 108/71; PULSE 66
--- NOTE | 2017-02-05 08:44 | PCM.HF ---
Heart Failure Core Measure - Heart Failure Ejection Fraction: 40 % or Greater CHRISTOPHER Inhibitor Prescribed: Yes Beta-Zehra Prescribed: Metoprolol Succinate Angiotensin II Receptor Zehra Prescribed: No Contraindication/Reason for not providing: on CHRISTOPHER AnticoagulationTherapy for Atrial Fibrillation/Atrialflutter: No Contraindication/Reason for not providing: no hx of afib Aldosterone Antagonist Prescribed: No Contraindication/Reason for not providing: ef>45 Hydralazine Nitrate Prescribed: No Contraindication/Reason for not providing: ef>45 Implantable Cardioverter Defibrillator Therapy: No Contraindication/Reason for not providing: ef>45 Contraindication/Reason for not providing: NSR - Follow up Will be discharged to: Home Follow Up Date (must be within 7 days from discharge): 02/08/17 Follow Up Time: 09:00
--- NOTE | 2017-02-07 06:44 | CARD ---
APPROVED REPORT EKG Measurement Heart [id number] PA 138P-2 [id number] <Conclusion> Normal sinus rhythm Cannot rule out Anterior infarct, age undetermined Abnormal ECG
== END 2017-02-04 10:50 | disposition home or self-care (01) ==
LOC: C.ER 01:17 → C.9E 05:57 → C.9I 06:41 → C.5S 21:51
PROVIDERS: ADMIT Internal Medicine; ATTEND Internal Medicine
DX: I11.0 Hypertensive heart disease with heart failure (principal); F03.90 Unspecified dementia, unspecified severity, without behavioral disturbance, psychotic disturbance, mood disturbance, and anxiety; E78.5 Hyperlipidemia, unspecified; E66.01 Morbid (severe) obesity due to excess calories; I50.9 Heart failure, unspecified; J45.909 Unspecified asthma, uncomplicated; Z95.5 Presence of coronary angioplasty implant and graft; Z95.0 Presence of cardiac pacemaker; I25.10 Atherosclerotic heart disease of native coronary artery without angina pectoris; E11.9 Type 2 diabetes mellitus without complications; Z68.43 Body mass index [BMI] 50.0-59.9, adult; I83.92 Asymptomatic varicose veins of left lower extremity
CPT/HCPCS: 36415; 70450; 71010; 80053; 81001; 82553; 82948; 83880; 84484; 84703; 85025; 85651; 86140; 87070; 87081; 90471; 90674; 90732; 93306; 93880; 93970; 96361; 96372; 96374; 97163; 97530; 99285; G0378; G8978; G8979; J1644; J2765; J7040

== ENCOUNTER 2017-04-13 16:50 | Observation (INO) | payer MEDICAID ==
[2017-04-13 16:51] VITALS: BMI 36.0
[2017-04-13] MEDS ORDERED: Albuterol-Ipratrop 3 mg / 0.5 (3 ml) UD INH STA (18:14)
[2017-04-13] MEDS ORDERED: Sodium Chloride 0.9% 1,000 ML IV ONE (18:32)
--- NOTE | 2017-04-13 18:32 | C.PDOC ---
History Of Present Illness Patient is a 42 year old female with a history of asthma, obesity, syncope, and DM is here complaining of 5 total espisodes of fainting right after she stands up. She says that has happened 3 times yesterday and 2 times today. She also is complaining of right sided chest pain and rib pain under her left breast. She says the pain does not radaite. She denies coughing or wheezing however she needs to use her inhaler atleast twice a week for shortness of breath. Chief Complaint (Nursing): Chest Pain History Per: Patient History/Exam Limitations: no limitations Onset/Duration Of Symptoms: Days Current Symptoms Are (Timing): Still Present Activity At Onset Of Symptoms: Standing Associated Symptoms Preceding Syncopal Episode: Lightheadedness, Worse With Standing, Vertigo Possible Causative Factor(s): Vertigo, Lightheaded W/Standing Fall Associated With With Symptoms: Yes. denies: No Injury As Result Of Fall Severity: Moderate Recent travel outside of the [place]: No Additional History Per: Prior Records - Symptoms Of CVA Associated Symptoms: denies: Impaired Speech, Seizure Activity Recent Aspirin Use: No Current Coumadin Use?: No Recent Head Trauma: No Past Medical History Vital Signs: Last Vital Signs Temp 97.8 F 04/13/17 17:00 Pulse 90 04/13/17 17:00 Resp 20 04/13/17 17:00 BP 109/74 04/13/17 17:00 Pulse Ox 96 04/13/17 21:29 - Medical History PMH: Asthma, Back Problems (2 herniated disc), Cardia Arrhythmia, Diabetes, HTN , Kidney Stones Denies: Hypercholesterolemia, Chronic Kidney Disease Surgical History: Cholecystectomy, Coronary Stent Comment Only: Pacemaker (revealed device 2013 dr. Galan) - [facility] INSPECTION OF LOWER INTESTINAL TRACT, ENDO (05/13/16) Family History: States: Unknown Family Hx - Social History Hx Tobacco Use: No Hx Alcohol Use: No Hx Substance Use: No - Immunization History Hx Tetanus Toxoid Vaccination: No Hx Influenza Vaccination: Yes Hx Pneumococcal Vaccination: Yes Physical Exam - Physical Exam Appears: Well, Non-toxic Skin: Normal Color, Dry, Pale Head: Atraumatic Oral Mucosa: Dry Chest: Symmetrical, Ecchymosis Cardiovascular: Rhythm Regular Respiratory: Decreased Breath Sounds, Wheezing Gastrointestinal/Abdominal: Normal Exam, Bowel Sounds, Soft, No Organomegaly, No Mass Back: No CVA Tenderness Extremity: Tenderness, Other (ropiness in left leg) Neurological/Psych: Oriented x3 ED Course And Treatment - Laboratory Results Result Diagrams: 04/13/17 18:43 04/13/17 18:43 Lab Interpretation: Abnormal Interpretation Of Abnormal: D-dimer elevated. Urine POC: Negative ECG: Viewed By Me ECG Rhythm: Sinus Rhythm ECG Interpretation: No Acute Changes O2 Sat by Pulse Oximetry: 96 - Radiology CXR: Viewed By Me CXR Interpretation: Yes: No Acute Disease - CT Scan/US CT angio Other Rad Studies (CT/US): Read By Radiologist CT/US Interpretation: negative for PE please EMR for full report Progress Note: Patient still feels lightheaded Reevaluation Time: 21:15 Reassessment Condition: Improved Medical Decision Making Medical Decision Making: Duoneb treatment, CXR, 0.5mg morphine for pain IV fluids CT angio to rule out PE, CT angio is negative and CT of head is also negative. 30mg of toradol given. 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 CT angio is negative for PE. CT head is negative. orthostatic vital signs most likely not accurate because we had to hold her up while she is standing. Admitted her to obs/tele. Disposition Discussed With : Jennie Garcia Doctor Will See Patient In The: Hospital - Disposition Disposition: HOSPITALIZED Disposition Time: 02:00 Condition: FAIR Forms: [facility] (Vietnamese) - POA Present On Arrival: None - Clinical Impression Clinical Impression: Chest pain, Pleurisy, Syncope, Vertigo
[2017-04-13 18:49] LABS: BASO % 0.4 % (0.0-2.0); EOS # 0.1 K/uL (0.0-0.7); EOS % 0.8 % (0.0-4.0); HEMATOCRIT 40.1 % (34.0-47.0); LYMPH # 2.2 K/uL (1.0-4.3); LYMPH % 21.9 % (20.0-40.0); MEAN CELL VOLUME 92.1 fL (81.0-99.0); MEAN CORPUSCULAR HGB CONC 33.7 g/dL (33.0-37.0); MEAN PLATELET VOLUME 7.9 fL (7.2-11.7); MONO # 0.6 K/uL (0.0-0.8); MONO % 5.8 % (0.0-10.0); RED CELL DISTRIBUTION WIDTH 13.4 % (11.5-14.5); WHITE BLOOD COUNT 9.9 K/uL (4.8-10.8)
[2017-04-13 18:59] LABS: ALB/GLOB RATIO 1.3 (1.0-2.1); ALKALINE PHOSPHATASE 76 U/L (38-126); ALT/SGPT 35 U/L (9-52); AST/SGOT 20 U/L (14-36); BILIRUBIN,TOTAL 0.6 mg/dL (0.2-1.3); BLOOD UREA NITROGEN 21 mg/dL (7-17); CALCIUM 8.6 mg/dl (8.6-10.4); CARBON DIOXIDE 30 mmol/L (22-30); CHLORIDE 103 mmol/L (98-107); GFR AFRICAN-AMERICAN > 60; GLUCOSE,RANDOM 93 mg/dL (65-105); POTASSIUM 3.9 mmol/L (3.6-5.2); SODIUM 140 mmol/L (132-148); TOTAL PROTEIN 7.2 g/dL (6.3-8.3)
[2017-04-13] MEDS ORDERED: Iodixanol 320 MG/ML 100 ML BOTTLE IV ONE (19:30)
[2017-04-13 20:01] LABS: RBC URINE 19 /hpf (0-3); URINE BACTERIA RARE (<OCC); URINE BILIRUBIN NEGATIVE (NEGATIVE); URINE BLOOD 1+ (NEGATIVE); URINE COLOR Yellow (YELLOW); URINE GLUCOSE (UA) NORMAL (Normal); URINE KETONE NEGATIVE (NEGATIVE); URINE LEUKOCYTE ESTERASE 3+ Leu/uL (Negative); URINE PROTEIN NEGATIVE (NEGATIVE); URINE UROBILINOGEN NORMAL mg/dL (0.2-1.0); WBC URINE 49 /hpf (0-5)
--- NOTE | 2017-04-13 20:40 | CT ---
EXAM: CT Head Without Intravenous Contrast CLINICAL HISTORY: 42 years old, female; Signs and symptoms; Syncope and collapse TECHNIQUE: Axial computed tomography images of the head/brain without intravenous contrast. All CT scans at this facility use one or more dose reduction techniques, viz.: automated exposure control; ma/kV adjustment per patient size (including targeted exams where dose is matched to indication; i.e. head); or iterative reconstruction technique. Coronal and sagittal reformatted images were created and reviewed. COMPARISON: No relevant prior studies available. FINDINGS: Brain: No intracranial hemorrhage. No mass. No definite edema. Ventricles: No hydrocephalus. Bones/joints: No acute fracture. Soft tissues: Unremarkable. Sinuses: No acute sinusitis. Mastoid air cells: No mastoid effusion. Orbits: Unremarkable as visualized. IMPRESSION: 1. No acute intracranial abnormality.
--- NOTE | 2017-04-13 20:53 | CT ---
EXAM: CT Angiography Chest With Intravenous Contrast CLINICAL HISTORY: 42 years old, female; Signs and symptoms; Dyspnea and tachypnea; Additional info: R/O pe TECHNIQUE: Axial computed tomographic angiography images of the chest with intravenous contrast using pulmonary embolism protocol. All CT scans at this facility use one or more dose reduction techniques, viz.: automated exposure control; ma/kV adjustment per patient size (including targeted exams where dose is matched to indication; i.e. head); or iterative reconstruction technique. MIP reconstructed images were created and reviewed. Coronal and sagittal reformatted images were created and reviewed. CONTRAST: 100 mL of visipaque 320 administered intravenously. COMPARISON: No relevant prior studies available. FINDINGS: Limitations: Suboptimal timing of bolus. Pulmonary arteries: No definite pulmonary embolism. Aorta: No aneurysm. No dissection. Lungs: No consolidation. 0.3 cm RIGHT upper lobe nodule. Pleural space: No significant effusion. No pneumothorax. Heart: No cardiomegaly. No significant pericardial effusion. Thyroid: Heterogeneous with several nodules/calcifications. Bones/joints: Bone island. No acute fracture. Soft tissues: Unremarkable. Lymph nodes: No pathologically enlarged lymph nodes. Gallbladder and bile ducts: Cholecystectomy. IMPRESSION: 1. No definite CT evidence of pulmonary embolism. 2. Heterogeneous thyroid. Followup as clinically warranted. 3. Pulmonary nodules. For low-risk patients, no follow-up is necessary. For high-risk patients (smoking history or other known risk factors) an optional CT at 12 months could be performed. 4. Incidental/non-acute findings are described above.
--- NOTE | 2017-04-13 22:57 | CP.PCM.HP ---
History of Present Illness - History of Present Illness History of Present Illness: MORBIDLY OBESED FEMALE ADMITTED WITH ATYPICAL CP AND DIZZINESS ON STANDING PT HAD NO ORTHOSTATIC FINDINGS MULTIPLE ADMISSION IN PAST FOR CP HAD STENT IN CORONARY AND PACEMAKER BY DR. MOMIN DM/HTN AND POSSIBLE DRUG ABUSE Present on Admission - Present on Admission Any Indicators Present on Admission: No Review of Systems - Constitutional Constitutional: Chills, Excessive Sweating, Fatigue, Increased Appetite, Lethargy - EENT Eyes: absent: As Per HPI, Blind Spots, Blurred Vision, Change in Vision, Decreased Night Vision, Diplopia, Discharge, Dry Eye, Exophthalmos, Floaters, Irritation, Itchy Eyes, Loss of Peripheral Vision, Pain, Photophobia, Requires Corrective Lenses, Sees Flashes, Spots in Vision, Tunnel Vision, Other Visual Disturbances, Loss of Vision, Other - Cardiovascular Cardiovascular: Chest Pain, Lightheadedness, Orthopnea - Respiratory Respiratory: absent: As Per HPI, Cough, Dyspnea, Hemoptysis, Dyspnea on Exertion , Wheezing, Snoring, Stridor, Pain on Inspiration, Chest Congestion, Excessive Mucous Production, Change in Mucous Color, Pain with Coughing, Other - Gastrointestinal Gastrointestinal: absent: As Per HPI, Abdominal Pain, Belching, Bloating, Change in Bowel Habits, Change in Stool Character, Coffee Ground Emesis, Constipation, Cramping, Diarrhea, Dyspepsia, Dysphagia, Early Satiety, Excessive Flatus, Fecal Incontinence, Heartburn, Hematemesis, Hematochezia, Loose Stools, Melena, Nausea, Odynophagia, Temesmus, Vomiting, Other - Genitourinary Genitourinary: absent: As Per HPI, Change in Urinary Stream, Difficulty Urinating, Dysuria, Flank Pain, Hematuria, Pyuria, Nocturia, Urinary Incontinence, Urinary Frequency, Urinary Hesitance, Urinary Urgency, Voiding Freq/Small Amts, Freq UTI, Hx Renal/Bladder Calculi, Hx /Renal Surgery, Bladder Distension, Other - Musculoskeletal Musculoskeletal: Muscle Cramps, Muscle Weakness, Myalgias, Neck Pain - Neurological Neurological: Weakness. absent: As Per HPI, Abnormal Gait, Abnormal Hearing, Abnormal Movements, Abnormal Speech, Behavioral Changes, Burning Sensations, Confusion, Convulsions, Disequilibrium, Dizziness, Numbness, Focal Weakness, Frequent Falls, Headaches, Lack of Coordination, Loss of Vision, Memory Loss, Paresthesias, Radicular Pain, Restless Legs, Sensory Deficit, Syncope, Tingling , Tremor, Vertigo, Other Visual Disturbances, Other Past Patient History - Infectious Disease Hx of Infectious Diseases: None - Past Medical History & Family History Past Medical History?: Yes - Past Social History Smoking Status: Never Smoked - CARDIAC Hx Cardia Arrhythmia: Yes Hx Hypercholesterolemia: No Hx Hypertension: Yes Hx Pacemaker: (revealed device 2013 dr. Galan) - PULMONARY Hx Asthma: Yes - NEUROLOGICAL Hx Neurological Disorder: No - HEENT Hx HEENT Problems: No - RENAL Hx Chronic Kidney Disease: No Hx Kidney Stones: Yes - ENDOCRINE/METABOLIC Hx Endocrine Disorders: Yes Hx Diabetes Mellitus Type 2: Yes - HEMATOLOGICAL/ONCOLOGICAL Hx Blood Disorders: No - INTEGUMENTARY Hx Dermatological Problems: No - MUSCULOSKELETAL/RHEUMATOLOGICAL Hx Musculoskeletal Disorders: Yes Hx Falls: No Hx Herniated Disk: Yes - GASTROINTESTINAL Hx Gastrointestinal Disorders: Yes Hx Hemorrhoids: Yes - GENITOURINARY/GYNECOLOGICAL Hx Genitourinary Disorders: No - PSYCHIATRIC Hx Substance Use: No - SURGICAL HISTORY Hx Cholecystectomy: Yes Hx Coronary Stent: Yes - ANESTHESIA Hx Anesthesia: Yes Hx Anesthesia Reactions: No Meds Allergies/Adverse Reactions: Allergies Allergy/AdvReac Type Severity Reaction Status Date / Time aspirin Allergy URTICARIA Verified 02/02/17 01:37 Penicillins Allergy Verified 02/02/17 01:37 Physical Exam - Head Exam Head Exam: ATRAUMATIC - Eye Exam Eye Exam: EOMI, Normal appearance - ENT Exam ENT Exam: Mucous Membranes Moist - Neck Exam Neck exam: Positive for: Normal Inspection - Respiratory Exam Respiratory Exam: Clear to Auscultation Bilateral, NORMAL BREATHING PATTERN - Cardiovascular Exam Cardiovascular Exam: REGULAR RHYTHM - GI/Abdominal Exam GI & Abdominal Exam: Normal Bowel Sounds, Soft. absent: Tenderness - Rectal Exam Rectal Exam: NORMAL INSPECTION - Extremities Exam Extremities exam: Positive for: normal inspection - Back Exam Back exam: NORMAL INSPECTION. absent: CVA tenderness (L), CVA tenderness (R) - Neurological Exam Neurological exam: Alert, CN II-XII Intact, Normal Gait, Oriented x3, Reflexes Normal - Psychiatric Exam Psychiatric exam: Normal Affect, Normal Mood Results - Vital Signs Recent Vital Signs: Last Vital Signs Temp 98 F 04/13/17 22:26 Pulse 86 04/13/17 22:26 Resp 20 04/13/17 22:26 BP 114/59 L 04/13/17 22:26 Pulse Ox 98 12/12/17 22:26 - Labs Result Diagrams: 04/13/17 18:43 04/13/17 18:43 Labs: Laboratory Results - last 24 hr 04/13/17 04/13/17 04/13/17 18:43 18:43 18:43 WBC 9.9 RBC 4.35 Hgb 13.5 Hct 40.1 MCV 92.1 MCH 31.0 MCHC 33.7 RDW 13.4 Plt Count 272 MPV 7.9 Neut % (Auto) 71.1 Lymph % (Auto) 21.9 [place] % (Auto) 5.8 Eos % (Auto) 0.8 Baso % (Auto) 0.4 Neut # 7.1 H Lymph # 2.2 [place] # 0.6 Eos # 0.1 Baso # 0.0 PT 10.6 INR 1.0 APTT 29 D-Dimer, Quantitative 324 H Sodium 140 Potassium 3.9 Chloride 103 Carbon Dioxide 30 Anion Gap 11 BUN 21 H Creatinine 0.8 Est GFR ( Amer) > 60 Est GFR (Non-Af Amer) > 60 POC Glucose (mg/dL) Random Glucose 93 Hemoglobin A1c Calcium 8.6 Total Bilirubin 0.6 AST 20 ALT 35 Alkaline Phosphatase 76 Total Creatine Kinase 32 CK-MB (Mass) < 0.22 Troponin I < 0.0120 Total Protein 7.2 Albumin 4.0 Globulin 3.2 Albumin/Globulin Ratio 1.3 Urine Color Urine Clarity Urine pH Ur Specific [place] Urine Protein Urine Glucose (UA) Urine Ketones Urine Blood Urine Nitrate Urine Bilirubin Urine Urobilinogen Ur Leukocyte Esterase Urine WBC (Auto) Urine RBC (Auto) Ur Squamous Epith Cells Urine Bacteria Urine HCG, Qual 04/13/17 04/13/17 04/13/17 18:43 18:56 19:39 WBC RBC Hgb Hct MCV MCH MCHC RDW Plt Count MPV Neut % (Auto) Lymph % (Auto) [place] % (Auto) Eos % (Auto) Baso % (Auto) Neut # Lymph # [place] # Eos # Baso # PT INR APTT D-Dimer, Quantitative Sodium Potassium Chloride Carbon Dioxide Anion Gap BUN Creatinine Est GFR ( Amer) Est GFR (Non-Af Amer) POC Glucose (mg/dL) 91 Random Glucose Hemoglobin A1c 5.1 Calcium Total Bilirubin AST ALT Alkaline Phosphatase Total Creatine Kinase CK-MB (Mass) Troponin I Total Protein Albumin Globulin Albumin/Globulin Ratio Urine Color Yellow Urine Clarity Hazy Urine pH 6.0 Ur Specific [place] 1.024 Urine Protein Negative Urine Glucose (UA) Normal Urine Ketones Negative Urine Blood 1+ H Urine Nitrate Negative Urine Bilirubin Negative Urine Urobilinogen Normal Ur Leukocyte Esterase 3+ H Urine WBC (Auto) 49 H Urine RBC (Auto) 19 H Ur Squamous Epith Cells 14 H Urine Bacteria Rare Urine HCG, Qual Negative Assessment & Plan (1) Cerebellar ataxia Status: Acute Comment: MRI AND NEURO W/U (2) Chest pain Status: Chronic (3) Syncope Status: Acute (4) Vertigo Status: Acute (5) CAD (coronary artery disease) Status: Chronic
[2017-04-14] MEDS: Sodium Chloride 0.45% 1,000 ML IV SCH ×2 (00:26→10:07)
[2017-04-14] MEDS: Oxycodone/Acetaminophen 5/325 mg Tab PO PRN ×2 (00:28→16:34)
--- NOTE | 2017-04-14 06:57 | CP.PCM.CON ---
History of Present Illness - History of Present Illness History of Present Illness: CONSULT DICTATED MULTIPLE SYNCOPE FROM NEURO ? NON CONVULSIVE Sz NEEDS MONITERING - LOOP RECORDING TILT TABLE STUDY EEG/MRI WHILE SHE IS HERE KEEP MAP AROUND 90-100 NEEDS PSG R/O TORIN Vs OBESITY HYPOVENTILATION SYNDROME DM WEIGHT CONTROL Past Patient History - Infectious Disease Hx of Infectious Diseases: None - Past Medical History & Family History Past Medical History?: Yes - Past Social History Smoking Status: Never Smoked - CARDIAC Hx Cardia Arrhythmia: Yes Hx Hypercholesterolemia: No Hx Hypertension: Yes Hx Pacemaker: (revealed device 2013 dr. Galan) Other/Comment: Claimed has 1 coronary stent - PULMONARY Hx Respiratory Disorders: Yes Hx Asthma: Yes - NEUROLOGICAL Hx Neurological Disorder: No - HEENT Hx HEENT Problems: No - RENAL Hx Chronic Kidney Disease: No Hx Kidney Stones: Yes - ENDOCRINE/METABOLIC Hx Endocrine Disorders: Yes Hx Diabetes Mellitus Type 2: Yes - HEMATOLOGICAL/ONCOLOGICAL Hx Blood Disorders: No - INTEGUMENTARY Hx Dermatological Problems: No - MUSCULOSKELETAL/RHEUMATOLOGICAL Hx Musculoskeletal Disorders: Yes Hx Falls: No Hx Herniated Disk: Yes - GASTROINTESTINAL Hx Gastrointestinal Disorders: Yes Hx Hemorrhoids: Yes - GENITOURINARY/GYNECOLOGICAL Hx Genitourinary Disorders: No - PSYCHIATRIC Hx Psychophysiologic Disorder: Yes Hx Depression: Yes Hx Substance Use: No - SURGICAL HISTORY Hx Surgeries: Yes Hx Cholecystectomy: Yes Hx Coronary Stent: Yes (1 stent) - ANESTHESIA Hx Anesthesia: Yes Hx Anesthesia Reactions: No Hx Malignant Hyperthermia: No Has any member of the family had a problem w/ anesthesia?: No Meds Allergies/Adverse Reactions: Allergies Allergy/AdvReac Type Severity Reaction Status Date / Time aspirin Allergy URTICARIA Verified 02/02/17 01:37 Penicillins Allergy Verified 02/02/17 01:37 - Medications Medications: Current Medications Acetaminophen (Tylenol 325mg Tab) 650 mg PO Q6 PRN PRN Reason: Pain, moderate (4-7) Last Admin: 04/14/17 06:52 Dose: 650 mg Docusate Sodium (Colace) 100 mg PO BID [facility] Famotidine (Pepcid) 20 mg PO BID [facility] Sodium Chloride (Sodium Chloride 0.45%) 1,000 mls @ 100 mls/hr IV .Q10H [facility] Last Admin: 04/14/17 00:26 Dose: 100 mls/hr Insulin Glargine (Lantus) 8 unit SC HS [facility] Insulin Human Regular (Novolin R) 0 unit SC ACHS [facility] PRN Reason: Protocol Lisinopril (Zestril) 5 mg PO DAILY [facility] Metformin HCl (Glucophage) 850 mg PO DAILY [facility] Metoprolol Succinate (Toprol Xl) 12.5 mg PO DAILY [facility] Oxycodone/Acetaminophen (Percocet 5/325 Mg Tab) 1 tab PO Q12H PRN PRN Reason: Pain, severe (8-10) Stop: 04/16/17 22:37 Last Admin: 04/14/17 00:28 Dose: 1 tab Rosuvastatin Calcium (Crestor) 2.5 mg PO HS [facility] Results - Vital Signs Recent Vital Signs: Last Vital Signs Temp 98.3 F 04/14/17 04:40 Pulse 79 04/14/17 04:40 Resp 20 04/14/17 04:40 BP 93/65 L 04/14/17 04:40 Pulse Ox 97 04/14/17 04:40 - Labs Result Diagrams: 04/13/17 18:43 04/13/17 18:43 Labs: Laboratory Results - last 24 hr 04/13/17 04/13/17 04/13/17 18:43 18:43 18:43 WBC 9.9 RBC 4.35 Hgb 13.5 Hct 40.1 MCV 92.1 MCH 31.0 MCHC 33.7 RDW 13.4 Plt Count 272 MPV 7.9 Neut % (Auto) 71.1 Lymph % (Auto) 21.9 [place] % (Auto) 5.8 Eos % (Auto) 0.8 Baso % (Auto) 0.4 Neut # 7.1 H Lymph # 2.2 [place] # 0.6 Eos # 0.1 Baso # 0.0 PT 10.6 INR 1.0 APTT 29 D-Dimer, Quantitative 324 H Sodium 140 Potassium 3.9 Chloride 103 Carbon Dioxide 30 Anion Gap 11 BUN 21 H Creatinine 0.8 Est GFR ( Amer) > 60 Est GFR (Non-Af Amer) > 60 POC Glucose (mg/dL) Random Glucose 93 Hemoglobin A1c Calcium 8.6 Total Bilirubin 0.6 AST 20 ALT 35 Alkaline Phosphatase 76 Total Creatine Kinase 32 CK-MB (Mass) < 0.22 Troponin I < 0.0120 Total Protein 7.2 Albumin 4.0 Globulin 3.2 Albumin/Globulin Ratio 1.3 Urine Color Urine Clarity Urine pH Ur Specific [place] Urine Protein Urine Glucose (UA) Urine Ketones Urine Blood Urine Nitrate Urine Bilirubin Urine Urobilinogen Ur Leukocyte Esterase Urine WBC (Auto) Urine RBC (Auto) Ur Squamous Epith Cells Urine Bacteria Urine HCG, Qual 04/13/17 04/13/17 04/13/17 18:43 18:56 19:39 WBC RBC Hgb Hct MCV MCH MCHC RDW Plt Count MPV Neut % (Auto) Lymph % (Auto) [place] % (Auto) Eos % (Auto) Baso % (Auto) Neut # Lymph # [place] # Eos # Baso # PT INR APTT D-Dimer, Quantitative Sodium Potassium Chloride Carbon Dioxide Anion Gap BUN Creatinine Est GFR ( Amer) Est GFR (Non-Af Amer) POC Glucose (mg/dL) 91 Random Glucose Hemoglobin A1c 5.1 Calcium Total Bilirubin AST ALT Alkaline Phosphatase Total Creatine Kinase CK-MB (Mass) Troponin I Total Protein Albumin Globulin Albumin/Globulin Ratio Urine Color Yellow Urine Clarity Hazy Urine pH 6.0 Ur Specific [place] 1.024 Urine Protein Negative Urine Glucose (UA) Normal Urine Ketones Negative Urine Blood 1+ H Urine Nitrate Negative Urine Bilirubin Negative Urine Urobilinogen Normal Ur Leukocyte Esterase 3+ H Urine WBC (Auto) 49 H Urine RBC (Auto) 19 H Ur Squamous Epith Cells 14 H Urine Bacteria Rare Urine HCG, Qual Negative 04/14/17 04/14/17 01:13 06:10 WBC RBC Hgb Hct MCV MCH MCHC RDW Plt Count MPV Neut % (Auto) Lymph % (Auto) [place] % (Auto) Eos % (Auto) Baso % (Auto) Neut # Lymph # [place] # Eos # Baso # PT INR APTT D-Dimer, Quantitative Sodium Potassium Chloride Carbon Dioxide Anion Gap BUN Creatinine Est GFR ( Amer) Est GFR (Non-Af Amer) POC Glucose (mg/dL) 74 Random Glucose Hemoglobin A1c Calcium Total Bilirubin AST ALT Alkaline Phosphatase Total Creatine Kinase 34 CK-MB (Mass) < 0.22 Troponin I < 0.0120 Total Protein Albumin Globulin Albumin/Globulin Ratio Urine Color Urine Clarity Urine pH Ur Specific [place] Urine Protein Urine Glucose (UA) Urine Ketones Urine Blood Urine Nitrate Urine Bilirubin Urine Urobilinogen Ur Leukocyte Esterase Urine WBC (Auto) Urine RBC (Auto) Ur Squamous Epith Cells Urine Bacteria Urine HCG, Qual
--- NOTE | 2017-04-14 07:00 | RAD ---
PROCEDURE: CHEST RADIOGRAPH, 1 VIEW HISTORY: chest pain, shortness of breath COMPARISON: 02/02/2017 FINDINGS: LUNGS: Mild venous congestion. Mild patchy increased markings at the left lung base. PLEURA: No pneumothorax or pleural fluid seen. CARDIOVASCULAR: Normal. OSSEOUS STRUCTURES: No significant abnormalities. VISUALIZED UPPER ABDOMEN: Normal. OTHER FINDINGS: None. IMPRESSION: Mild venous congestion. Mild patchy increased markings at the left lung base.
[2017-04-14] MEDS: (Novolin R) Insulin Human Regular 100 units/ml vial SC SCH ×4 (07:47→21:46)
[2017-04-14 08:08] LABS: FREE T4 0.91 ng/dL (0.78-2.19)
[2017-04-14 08:22] LABS: THYROID STIMULATING HORMONE 3.22 mIU/L (0.46-4.68)
[2017-04-14] MEDS: Enoxaparin 40 mg Syringe SC SCH (10:06)
[2017-04-14] MEDS: Metoprolol Succinate 12.5 mg XL PO SCH (10:08)
--- NOTE | 2017-04-14 10:48 | CON ---
DATE: 04/14/2017 REASON FOR THE CONSULTATION: Syncopal attack. CHIEF COMPLAINT: The patient was brought into [facility] with multiple episode of loss of consciousness. From neurological point of view, I was called in to evaluate her for further management. HISTORY OF PRESENTING ILLNESS: Ms. Digna Keita is a 42-year-old right-handed morbidly obese female, presenting with multiple episode of loss of consciousness. She claims that ever since she was placed on stent 2 years ago at [facility], this problem has been going on. She is also seen by neurologist in the past. 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 The problem never been resolved. She also admits left leg gives up and discomfort while she is walking. No syncopal attack associated with any witnessed tonic-clonic activities, bowel or bladder incontinence or bitten tongue. She admits her son is having seizures. PAST MEDICAL HISTORY: Noninsulin-dependent diabetes mellitus, herniated disk disease, hypertension, dyslipidemia and stroke. PERSONAL HISTORY: Denies smoking or alcohol use. ALLERGIES: ALLERGIC TO ASPIRIN AND PENICILLIN. MEDICATIONS: Insulin, Pepcid, doxycycline, docusate, Percocet, metoprolol, metformin, lisinopril and Victoza. REVIEW OF SYSTEMS: A 12-point systems had been reviewed. From neuro, loss of consciousness. PHYSICAL EXAMINATION: VITAL SIGNS: Blood pressure 93/65, mean arterial pressure of 74, respiratory rate 16, temperature afebrile. Pulse rate 79, regular. NECK: Supple. No carotid bruits. HEART: Sounds regular. CHEST: Fair air entry. EXTREMITIES: No edema in legs. NEUROLOGICAL EXAMINATION: Mental status examination: She is awake, alert, oriented to person, place and time. Speech is clear. Naming, repetition, fluency, comprehension all within normal. Cranial nerve examination: Visual field intact. Pupils reactive to it. Extraocular movement normal. No nystagmus. No facial sensory deficits. No facial asymmetry. Hearing is normal. Tongue is midline. Good gag. Motor examination: On an outstretched hand with eyes closed, no drift noted. Power is symmetric on either side. Lower extremities are pain limited exam. She could able to lift both the lower extremities against the gravity. Deep tendon reflexes biceps, brachialis, triceps, hyperreflexic on the right side, left side was trace. Both knees are absent. Both ankles are absent. Plantars are equivocal response on both sides. Sensory examination. No cortical sensory loss. 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 Coordination: [id number] test is intact. Gait is deferred at this time. WORKUP: CT of the head reviewed. No acute pathology is noted. Blood workup: WBC 9.9, hemoglobin 13.5, hematocrit 40.1, platelet 272. PT 10.6, INR 1.0, PTT 29. Sodium 140, potassium 3.9, chloride 103, bicarbonate 30, BUN 11, creatinine 0.8, GFR more than 60, glucose 74. Hemoglobin A1c 5.1. Liver functions are normal. Urine shows 3+ leukocytes, wbc's are 49, rbc's are 19. CONCLUSION: 1. Ms. Digna Keita, as per neurological examination, the patient does have hyperreflexia on the right side suggestive of left subcortical dysfunction, which is probably old. 2. The patient has also recurrent episode of syncopal attack, which probably is secondary to diabetic dysautonomia versus cardiac arrhythmias. From neurological point of view, nonconvulsive seizures should be under consideration. 3. 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 4. Morbid obesity, hypertension and uncontrolled diabetes mellitus. 5. The patient may have vasovagal attack. RECOMMENDATIONS: 1. MRI of the brain to rule out any structural cause. 2. Carotid Doppler to assess the stenosis. 3. Cardiology followup as well as recommended workup is needed for her arrhythmias as well as the associated hypertension. 4. Keep the mean arterial pressure around 90 to 100. The patient also recommended to have electroencephalogram to rule out any electrographic abnormal activities. 5. Weight reduction, diabetic control, blood pressure control and cardiac problems had been well discussed with the patient. The patient will be followed closely with you. Carroll Reyes MD
--- NOTE | 2017-04-14 10:53 | VASCLAB ---
PROCEDURE: Lower Extremity Venous Duplex Exam. HISTORY: Chest pain, r/o dvt. PRIORS: 02/02/2017, normal. TECHNIQUE: Bilateral common femoral, femoral, popliteal and posterior tibial, peroneal and great saphenous veins were evaluated. Flow was assessed with color Doppler, compressibility, assessment of phasic flow and augmentation response. Report prepared by JARRELL Henley FINDINGS: RIGHT: 1. Common Femoral Vein: 1.1. Compressibility - Fully compressible: Thrombus - None : Flow - Phasic: Augmentation -Normal: Reflux - None. 2. Femoral Vein: 2.1. Compressibility - Fully compressible: Thrombus - None : Flow - Phasic: Augmentation -Normal: Reflux - None. 3. Popliteal Vein: 3.1. Compressibility - Fully compressible: Thrombus - None : Flow - Phasic: Augmentation -Normal: Reflux - None. 4. Posterior Tibial Vein: 4.1. Compressibility - Fully compressible: Thrombus - None: Flow - Phasic: Augmentation -Normal: Reflux - None. 5. Peroneal Vein: 5.1. Compressibility - Fully compressible: Thrombus - None: Flow - Phasic: Augmentation -Normal: Reflux - None. 6. Great Saphenous Vein: 6.1. Compressibility - Fully compressible: Thrombus - None: Flow - Phasic: Augmentation - Normal: Reflux - None. LEFT: 1. Common Femoral Vein: 1.1. Compressibility - Fully compressible: Thrombus - None: Flow - Phasic: Augmentation -Normal: Reflux - None. 2. Femoral Vein: 2.1. Compressibility - Fully compressible: Thrombus - None: Flow - Phasic: Augmentation -Normal: Reflux - None. 3. Popliteal Vein: 3.1. Compressibility - Fully compressible: Thrombus - None : Flow - Phasic: Augmentation -Normal: Reflux - None. 4. Posterior Tibial Vein: 4.1. Compressibility - Fully compressible: Thrombus - None: Flow - Phasic: Augmentation -Normal: Reflux - None. 5. Peroneal Vein: 5.1. Compressibility - Fully compressible: Thrombus - None: Flow - Phasic: Augmentation -Normal: Reflux - None. 6. Great Saphenous Vein: 6.1. Compressibility - Fully compressible: Thrombus - None: Flow - Phasic: Augmentation - Normal: Reflux - None. OTHER FINDINGS: Right: None significant. Left: None significant. IMPRESSION: Right: No evidence of deep or superficial vein thrombosis of the right lower extremity. Normal valve function noted of the right side. Left: No evidence of deep or superficial vein thrombosis of the left lower extremity. Normal valve function noted of the left side.
--- NOTE | 2017-04-14 13:45 | CP.PCM.PN ---
Subjective - Date & Time of Evaluation Date of Evaluation: 04/14/17 Time of Evaluation: 13:43 - Subjective Subjective: CHIEF COMPLAINTS TODAY : DIZZINESS ROS. HEENT : N. Resp : No cough, wheezing ,pleuritic CP ,or hemoptysis Cardio : No anginal CP, PND, orthopnea, palpitation GI : No abd.pain, n/v ,diarrhea or GI bleeding . BELLY DANCER : No headache, vertigo, focal deficit. Musculoskel : No joint swelling , MULTIPLE JT PAINS Derm : No rash Psych : Normal affect. Ext : No swelling ,calf pain PE. Pt. is alert awake in no distress. V.S As noted in the chart Head ,ear nose,throat and eyes : Normal. Neck : Supple with normal carotids. Lungs: Clear air entry. Heart : S1 & S2 normal with S4. No murmur. Abd : Soft with normal bowel sounds. Neuro : Moves all ext. with no localized deficit. Ext : No edema with intact pulses.Non tender calves Derm : No rashes or decubitus ulcer. LABS/RADIOLOGY MRI COULD NOT DONE ASSESSMENT/PLAN : BP STABLE LAST ECHO WAS POOR QUALITY WILL GET MUGA SCAN Objective - Vital Signs/Intake and Output Vital Signs (last 24 hours): Temp Pulse Resp BP Pulse Ox 98 F 69 20 101/70 98 04/14/17 07:00 04/14/17 09:00 04/14/17 07:00 04/14/17 07:00 04/14/17 07:00 - Medications Medications: Current Medications Acetaminophen (Tylenol 325mg Tab) 650 mg PO Q6 PRN PRN Reason: Pain, moderate (4-7) Last Admin: 04/14/17 06:52 Dose: 650 mg Docusate Sodium (Colace) 100 mg PO BID [facility] Last Admin: 04/14/17 10:05 Dose: 100 mg Enoxaparin Sodium (Lovenox) 40 mg SC DAILY [facility] Last Admin: 04/14/17 10:06 Dose: 40 mg Famotidine (Pepcid) 20 mg PO BID [facility] Last Admin: 04/14/17 10:05 Dose: 20 mg Sodium Chloride (Sodium Chloride 0.45%) 1,000 mls @ 100 mls/hr IV .Q10H [facility] Last Admin: 04/14/17 10:07 Dose: 100 mls/hr Insulin Glargine (Lantus) 8 unit SC HS [facility] Insulin Human Regular (Novolin R) 0 unit SC ACHS [facility] PRN Reason: Protocol Last Admin: 04/14/17 11:57 Dose: Not Given Lisinopril (Zestril) 5 mg PO DAILY [facility] Last Admin: 04/14/17 10:08 Dose: Not Given Metformin HCl (Glucophage) 850 mg PO DAILY [facility] Last Admin: 04/14/17 10:05 Dose: Not Given Metoprolol Succinate (Toprol Xl) 12.5 mg PO DAILY [facility] Last Admin: 04/14/17 10:08 Dose: Not Given Oxycodone/Acetaminophen (Percocet 5/325 Mg Tab) 1 tab PO Q12H PRN PRN Reason: Pain, severe (8-10) Stop: 04/16/17 22:37 Last Admin: 04/14/17 00:28 Dose: 1 tab Rosuvastatin Calcium (Crestor) 2.5 mg PO HS [facility] - Labs Labs: 04/13/17 18:43 04/13/17 18:43 PT 10.6 SECONDS (9.7-12.2) 04/13/17 18:43 INR 1.0 04/13/17 18:43 APTT 29 SECONDS (21-34) 04/13/17 18:43 Assessment and Plan (1) Cerebellar ataxia Status: Acute (2) Chest pain Status: Chronic (3) Syncope Status: Acute (4) Vertigo Status: Acute (5) CAD (coronary artery disease) Status: Chronic
[2017-04-14] MEDS ORDERED: Rosuvastatin Calcium 2.5 mg Tab PO SCH (22:00)
[2017-04-14] MEDS ORDERED: (Lantus) Insulin Glargine, Recombinant SC SCH (22:00)
[2017-04-15] MEDS: (Novolin R) Insulin Human Regular 100 units/ml vial SC SCH ×3 (08:23→18:30)
--- NOTE | 2017-04-15 08:25 | PN ---
DATE: 04/15/2017 NEUROLOGICAL PROBLEM: Recurrent syncope. PHYSICAL EXAMINATION: VITAL SIGNS: Blood pressure 98/68, mean arterial pressure of 78, respiratory rate 18, temperature 98.3, pulse rate 74. NEUROLOGIC: The patient is arousable calling her first name. No complaints except significant pain in her back. No syncopal episode or passing out spell or dizziness while in the hospital. Examination is unchanged compared with my previous exam. LABORATORY DATA: Electroencephalogram is reviewed by me showed no paroxysmal activities or focal slowing noted. The patient was tried to have MRI of the brain. Because of her physique, which could not be able to done while she is here. However, open MRI can be done as outpatient. ASSESSMENT AND PLAN: From neurological point of view, the patient does not need any further workup from my end. 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 She should have either loop recording and tilt table studies should be considered. If change in neurologic status, please do not hesitate to call me back. Carroll Reyes MD
[2017-04-15] MEDS: Oxycodone/Acetaminophen 5/325 mg Tab PO PRN (08:57)
[2017-04-15 09:07] VITALS: TEMP 98.4
[2017-04-15] MEDS: Metoprolol Succinate 12.5 mg XL PO SCH (10:18)
[2017-04-15] MEDS: Enoxaparin 40 mg Syringe SC SCH (10:18)
--- NOTE | 2017-04-15 11:28 | EEG ---
This is a 16-channel electroencephalogram of awake and drowsy adult. During the study, photic stimulation was performed. Hyperventilation was not performed. The resting electroencephalogram consists of Hz alpha activity seen at parietal and occipital leads. Anteriorly, fast activity superimposed with 2 to 3 Hz delta activities seen. Intermittent 2 to 3 Hz delta activities seen, which consistent with early drowsiness. The photic stimulation did not evoke driving response noted at 2 to 20 Hz. IMPRESSION: This is a normal electroencephalogram of awake and drowsy adult. During the study, neither electroencephalographic, paroxysmal activities nor focal slowing noted. Carroll Reyes MD
--- NOTE | 2017-04-15 13:19 | CARD ---
APPROVED REPORT EKG Measurement Heart [id number] <Conclusion> Normal sinus rhythm Low voltage QRS Borderline ECG
--- NOTE | 2017-04-15 14:03 | CP.PCM.PN ---
Subjective - Date & Time of Evaluation Date of Evaluation: 04/15/17 Time of Evaluation: 14:02 - Subjective Subjective: CURRENT W/U ARE NEG WILL NEED TO F/U WITH HER CHEF ASSISTANT . DR. RAMIREZ IN [facility] Objective - Vital Signs/Intake and Output Vital Signs (last 24 hours): Temp Pulse Resp BP Pulse Ox 98.4 F 72 20 124/82 98 04/15/17 07:30 04/15/17 10:10 04/15/17 10:10 04/15/17 10:10 04/15/17 10:10 Intake and Output: 04/15/17 04/15/17 11:59 23:59 Intake Total 900 Balance 900 - Medications Medications: Current Medications Acetaminophen (Tylenol 325mg Tab) 650 mg PO Q6 PRN PRN Reason: Pain, moderate (4-7) Last Admin: 04/14/17 06:52 Dose: 650 mg Docusate Sodium (Colace) 100 mg PO BID [facility] Last Admin: 04/15/17 10:18 Dose: 100 mg Enoxaparin Sodium (Lovenox) 40 mg SC DAILY [facility] Last Admin: 04/15/17 10:18 Dose: 40 mg Famotidine (Pepcid) 20 mg PO BID [facility] Last Admin: 04/15/17 10:18 Dose: 20 mg Sodium Chloride (Sodium Chloride 0.45%) 1,000 mls @ 100 mls/hr IV .Q10H [facility] Last Admin: 04/14/17 10:07 Dose: 100 mls/hr Insulin Glargine (Lantus) 8 unit SC HS [facility] Last Admin: 04/14/17 21:55 Dose: 8 units Insulin Human Regular (Novolin R) 0 unit SC ACHS [facility] PRN Reason: Protocol Last Admin: 04/15/17 12:23 Dose: Not Given Lisinopril (Zestril) 5 mg PO DAILY [facility] Last Admin: 04/15/17 10:18 Dose: 5 mg Metformin HCl (Glucophage) 850 mg PO DAILY [facility] Last Admin: 04/15/17 10:12 Dose: Not Given Metoprolol Succinate (Toprol Xl) 12.5 mg PO DAILY [facility] Last Admin: 04/15/17 10:18 Dose: 12.5 mg Oxycodone/Acetaminophen (Percocet 5/325 Mg Tab) 1 tab PO Q12H PRN PRN Reason: Pain, severe (8-10) Stop: 04/16/17 22:37 Last Admin: 04/15/17 08:57 Dose: 1 tab Rosuvastatin Calcium (Crestor) 2.5 mg PO HS [facility] Last Admin: 04/14/17 21:55 Dose: 2.5 mg - Labs Labs: 04/13/17 18:43 04/13/17 18:43 PT 10.6 SECONDS (9.7-12.2) 04/13/17 18:43 INR 1.0 04/13/17 18:43 APTT 29 SECONDS (21-34) 04/13/17 18:43 Assessment and Plan (1) Cerebellar ataxia Status: Acute (2) Chest pain Status: Chronic (3) Syncope Status: Acute (4) Vertigo Status: Acute (5) CAD (coronary artery disease) Status: Chronic
--- NOTE | 2017-04-15 17:39 | CP.PCM.PN ---
Subjective - Date & Time of Evaluation Date of Evaluation: 04/15/17 Time of Evaluation: 11:00 - Subjective Subjective: Alert, awake, stable vitals. Objective - Vital Signs/Intake and Output Vital Signs (last 24 hours): Temp Pulse Resp BP Pulse Ox 98.4 F 72 20 124/82 98 04/15/17 07:30 04/15/17 12:00 04/15/17 10:10 04/15/17 10:10 04/15/17 10:10 Intake and Output: 04/15/17 04/15/17 06:59 18:59 Intake Total 1140 2100 Balance 1140 2100 - Medications Medications: Current Medications Acetaminophen (Tylenol 325mg Tab) 650 mg PO Q6 PRN PRN Reason: Pain, moderate (4-7) Last Admin: 04/14/17 06:52 Dose: 650 mg Docusate Sodium (Colace) 100 mg PO BID [facility] Last Admin: 04/15/17 10:18 Dose: 100 mg Enoxaparin Sodium (Lovenox) 40 mg SC DAILY [facility] Last Admin: 04/15/17 10:18 Dose: 40 mg Famotidine (Pepcid) 20 mg PO BID [facility] Last Admin: 04/15/17 10:18 Dose: 20 mg Sodium Chloride (Sodium Chloride 0.45%) 1,000 mls @ 100 mls/hr IV .Q10H [facility] Last Admin: 04/14/17 10:07 Dose: 100 mls/hr Insulin Glargine (Lantus) 8 unit SC HS [facility] Last Admin: 04/14/17 21:55 Dose: 8 units Insulin Human Regular (Novolin R) 0 unit SC ACHS [facility] PRN Reason: Protocol Last Admin: 04/15/17 12:23 Dose: Not Given Lisinopril (Zestril) 5 mg PO DAILY [facility] Last Admin: 04/15/17 10:18 Dose: 5 mg Metformin HCl (Glucophage) 850 mg PO DAILY [facility] Last Admin: 04/15/17 10:12 Dose: Not Given Metoprolol Succinate (Toprol Xl) 12.5 mg PO DAILY [facility] Last Admin: 04/15/17 10:18 Dose: 12.5 mg Oxycodone/Acetaminophen (Percocet 5/325 Mg Tab) 1 tab PO Q12H PRN PRN Reason: Pain, severe (8-10) Stop: 04/16/17 22:37 Last Admin: 04/15/17 08:57 Dose: 1 tab Rosuvastatin Calcium (Crestor) 2.5 mg PO HS [facility] Last Admin: 04/14/17 21:55 Dose: 2.5 mg - Labs Labs: 04/13/17 18:43 04/13/17 18:43 PT 10.6 SECONDS (9.7-12.2) 04/13/17 18:43 INR 1.0 04/13/17 18:43 APTT 29 SECONDS (21-34) 04/13/17 18:43 Assessment and Plan - Assessment and Plan (Free Text) Assessment: Patient is seen with DR Garcia. Alert and orientedx3. Explained by DR Garcia that her chronic conditions need to be treated as outpatient. Patient is cleared by neurologist and is advised to follow up with her art class model DR Motta. Plan to discharge home today on her current medications. No acute distress, labs reviewed.
[2017-04-15 18:12] VITALS: BP 102/66; PULSE 78; RESP 18; O2SAT 96
== END 2017-04-15 20:30 | disposition home or self-care (01) ==
LOC: C.ER 16:50 → C.6T 21:57
PROVIDERS: ADMIT Internal Medicine Cardiovascular Disease; ATTEND Internal Medicine Cardiovascular Disease
DX: R07.89 Other chest pain (principal); E11.65 Type 2 diabetes mellitus with hyperglycemia; E66.01 Morbid (severe) obesity due to excess calories; E78.5 Hyperlipidemia, unspecified; G40.89 Other seizures; G62.9 Polyneuropathy, unspecified; I10 Essential (primary) hypertension; I25.10 Atherosclerotic heart disease of native coronary artery without angina pectoris; J45.909 Unspecified asthma, uncomplicated; Z95.5 Presence of coronary angioplasty implant and graft; Z68.42 Body mass index [BMI] 45.0-49.9, adult
CPT/HCPCS: 36415; 70450; 71010; 71275; 80053; 81001; 82948; 83036; 84146; 84439; 84443; 84484; 84703; 85025; 85378; 85610; 85730; 87086; 93005; 93970; 95812; 96361; 96374; 96375; 97116; 97162; 99285; G0378; G8978; G8979; J1650; J1885; J2270; J7030; J7040; Q9967

== ENCOUNTER 2018-06-13 10:17 | Emergency (ER) | payer MEDICAID ==
[2018-06-13 10:17] VITALS: BMI 36.0
[2018-06-13 10:38] VITALS: O2SAT 95
--- NOTE | 2018-06-13 13:45 | C.PDOC ---
History Of Present Illness 43 y/o morbidly obese female,w/PMhx of cardiac stent with dm and htn, presents to the ER complaining of rectal bleeding and rectal pain x 2 days. pt also reports 3 episodes of diarrhea. Patient states that she saw blood in toilet. P atient reports that she feels lightheaded with walking. She notes that she has bariatric surgery coming ui in 2 weeks. Denies having fever,chills ,headache, CP, SOB, nausea, and vomiting. Time Seen by Provider: 06/13/18 11:07 Chief Complaint (Nursing): Abdominal Pain History Per: Patient History/Exam Limitations: no limitations Onset/Duration Of Symptoms: Days Current Symptoms Are (Timing): Still Present Severity: Moderate Past Medical History Reviewed: Historical Data, Nursing Documentation, Vital Signs Vital Signs: Last Vital Signs Temp 99.1 F 06/13/18 10:32 Pulse 79 06/13/18 10:32 Resp 18 06/13/18 10:32 BP 134/81 06/13/18 10:32 Pulse Ox 95 06/13/18 10:32 - Medical History PMH: Asthma, Back Problems (2 herniated disc), Cardia Arrhythmia, Depression, D iabetes (type II), HTN, Kidney Stones Denies: Hypercholesterolemia, Chronic Kidney Disease Surgical History: Cholecystectomy, Coronary Stent (1 stent) Comment Only: Pacemaker (revealed device 2014 dr. Galan) - [facility] Procedures INSPECTION OF LOWER INTESTINAL TRACT, ENDO (05/13/16) Family History: States: No Known Family Hx - Social History Hx Tobacco Use: No Hx Alcohol Use: No Hx Substance Use: No - Immunization History Hx Tetanus Toxoid Vaccination: No Hx Influenza Vaccination: Yes Hx Pneumococcal Vaccination: Yes Review Of Systems Constitutional: Negative for: Fever, Chills Cardiovascular: Negative for: Chest Pain Respiratory: Negative for: Shortness of Breath Gastrointestinal: Positive for: Diarrhea, Rectal Pain, Other (rectal bleeding). Negative for: Nausea, Vomiting, Abdominal Pain Neurological: Positive for: Other (lightheadedness) Physical Exam - Physical Exam Appears: Non-toxic, No Acute Distress, Other (obese) Skin: Normal Color, Warm, Dry Head: Atraumatic, Normacephalic Eye(s): bilateral: Normal Inspection, Other (no pale conjunctiva) Oral Mucosa: Moist Neck: Supple Chest: Symmetrical Cardiovascular: Rhythm Regular Respiratory: Normal Breath Sounds, No Rales, No Rhonchi, No Wheezing Gastrointestinal/Abdominal: Soft, No Tenderness, No Guarding, No Rebound, Hernia Rectal: Hemorrhoids (large tender nonthrombosed hemorrhoid at 12:00 position, no other hemorrhoids palpated), Other (no pain in rectum) Neurological/Psych: Oriented x3, Normal Speech, Normal Cognition ED Course And Treatment - Laboratory Results Result Diagrams: 06/13/18 13:47 06/13/18 13:47 O2 Sat by Pulse Oximetry: 95 (RA) Pulse Ox Interpretation: Normal Medical Decision Making Medical Decision Making: Plan: --Labs --UA --Tylenol PO --Lidocaine topical 1500 pt refused medications from nurse. will d/c with dibucaine, tylenol and colace. will tx for uti as well. f/u pmd. pt not anemic, guaiac negative. Disposition Counseled Patient/Family Regarding: Studies Performed, Diagnosis, Need For Followup, Rx Given - Disposition Disposition: HOME/ ROUTINE Disposition Time: 15:08 Condition: GOOD Additional Instructions: Please follow up with your bariatric surgeon and discuss treatment for hemorrhoids as soon as possible. Apply ointment as directed. Take Tylenol for pain and colace to keep stool soft to avoid straining during bowel movement. Take antibiotics for urine infection. Prescriptions: Acetaminophen [Tylenol 325mg tab] 650 mg PO Q6 #30 tab Dibucaine 1% [Nupercainal 1%] 1 oz EXT TID #1 tube Docusate Sodium [Colace] 100 mg PO BID #60 capsule Nitrofurantoin Macrocrystals [Macrobid] 100 mg PO BID #14 cap Instructions: Hemorrhoids (DC) Forms: [facility] (Mongolian), General Discharge Instructions - Clinical Impression Clinical Impression: Hemorrhoids, UTI (urinary tract infection) - PA / RECREATIONAL SPECIALIST / Resident Statement MD/DO has reviewed & agrees with the documentation as recorded. - Scribe Statement The provider has reviewed the documentation as recorded by the Frank Davis Provider Attestation All medical record entries made by the Renatoibsherry were at my direction and personally dictated by me. I have reviewed the chart and agree that the record accurately reflects my personal performance of the history, physical exam, medical decision making, and the department course for this patient. I have also personally directed, reviewed, and agree with the discharge instructions and disposition.
[2018-06-13 13:50] LABS: BASO # 0.1 K/uL (0.0-0.2); BASO % 0.8 % (0.0-2.0); EOS % 0.5 % (0.0-4.0); HEMOGLOBIN 13.7 g/dL (11.0-16.0); LYMPH % 22.8 % (20.0-40.0); MEAN CELL VOLUME 93.5 fL (81.0-99.0); MEAN CORPUSCULAR HEMOGLOBIN 31.5 pg (27.0-31.0); MEAN CORPUSCULAR HGB CONC 33.7 g/dL (33.0-37.0); MEAN PLATELET VOLUME 8.7 fL (7.2-11.7); MONO # 0.4 K/uL (0.0-0.8); MONO % 4.5 % (0.0-10.0); NEUT # 6.2 K/uL (1.8-7.0); NEUT % 71.4 % (50.0-75.0); RBC 4.35 Mil/uL (3.80-5.20); RED CELL DISTRIBUTION WIDTH 13.5 % (11.5-14.5); WHITE BLOOD COUNT 8.6 K/uL (4.8-10.8)
[2018-06-13 13:56] LABS: SQUAMOUS EPITHIAL 6 /hpf (0-5); URINE BACTERIA RARE (<OCC); URINE BILIRUBIN NEGATIVE (NEGATIVE); URINE BLOOD NEGATIVE (NEGATIVE); URINE CLARITY Hazy (Clear); URINE COLOR Yellow (YELLOW); URINE GLUCOSE (UA) NORMAL (Normal); URINE LEUKOCYTE ESTERASE 3+ Leu/uL (Negative); URINE PROTEIN NEGATIVE (NEGATIVE); URINE UROBILINOGEN NORMAL mg/dL (0.2-1.0)
[2018-06-13 14:04] LABS: BLOOD UREA NITROGEN 14 mg/dL (7-17); CALCIUM 9.1 mg/dl (8.6-10.4); GFR NON-AFRICAN AMERICAN > 60; LIPASE 127 U/L (23-300)
[2018-06-13 14:09] LABS: ALB/GLOB RATIO 1.2 (1.0-2.1); ALBUMIN 4.5 g/dL (3.5-5.0); ALT/SGPT 14 U/L (9-52); AST/SGOT 46 U/L (14-36)
[2018-06-13] MEDS ORDERED: Sodium Chloride 0.9% 1,000 ML IV ONE (15:28)
[2018-06-13] MEDS ORDERED: Sodium Chloride 0.9% 1,000 ML ONE (15:38)
[2018-06-13 17:03] VITALS: BP 120/82; PULSE 72; RESP 18; TEMP 98.6
== END 2018-06-13 17:04 | disposition home or self-care (01) ==
LOC: C.ER 10:17
DX: K64.9 Unspecified hemorrhoids (principal); N39.0 Urinary tract infection, site not specified
CPT/HCPCS: 80053; 81001; 81025; 82948; 83690; 85025; 87086; 99285; G0328; J7030

== ENCOUNTER 2018-08-02 16:59 | Observation (INO) | payer MEDICAID ==
[2018-08-02 16:59] VITALS: BMI 36.0
--- NOTE | 2018-08-02 18:02 | C.PDOC ---
History Of Present Illness 43 yo female w/PMHx of DM, HTN, CAD s/p PTCA, morbid oberisity come in for evaluation of " diffuse chest pain goes to my Right and left shoulder, hurts to move it. ALos have dizziness". Pt admits, similar sx in past. Denies recent i llness, fever, chills, headache, visual changes, focal deficits, neck pain, SOB, dyspnea, cough, wheezing, palpitation, abd. pain, V/D, denies any other active complaints. Appears comfortable, not in any apparent distress. PMHx: DM, HTN, CAD (stent), atrial fibrillation, 2 herniated discs PSHx: Stent placement (2013 - Dr. Winston Jimenez), Cardiac Cath PMD: Dr. Bullock ([place], [place]) Allergies: ASA, Penicillin (rash) Time Seen by Provider: 08/02/18 17:39 Chief Complaint (Nursing): Chest Pain History Per: Patient Past Medical History Reviewed: Historical Data, Nursing Documentation, Vital Signs Vital Signs: Last Vital Signs Temp 98.7 F 08/02/18 17:22 Pulse 86 08/02/18 17:22 Resp 16 08/02/18 17:22 BP 108/76 08/02/18 17:22 Pulse Ox 98 08/02/18 17:22 - Medical History PMH: Asthma, Back Problems (2 herniated disc), Cardia Arrhythmia, Depression, Diabetes (type II), HTN, Kidney Stones Denies: Hypercholesterolemia, Chronic Kidney Disease Other PMH: morbid obesity Surgical History: Cholecystectomy, Coronary Stent (1 stent) Comment Only: Pacemaker (revealed device [address] dr[address] Galan) - [facility] Procedures INSPECTION OF LOWER INTESTINAL TRACT, ENDO (05/13/16) Family History: States: Unknown Family Hx - Social History Hx Tobacco Use: No Hx Alcohol Use: No Hx Substance Use: No - Immunization History Hx Tetanus Toxoid Vaccination: No Hx Influenza Vaccination: Yes Hx Pneumococcal Vaccination: Yes Review Of Systems Except As Marked, All Systems Reviewed And Found Negative. Constitutional: Negative for: Fever, Chills ENT: Negative for: Throat Pain Cardiovascular: Positive for: Chest Pain. Negative for: Palpitations, Edema, Light Headedness Respiratory: Negative for: Cough, Shortness of Breath Gastrointestinal: Negative for: Nausea, Vomiting, Abdominal Pain, Diarrhea Neurological: Positive for: Dizziness. Negative for: Weakness, Numbness, Headache Physical Exam - Physical Exam Appears: Well, Non-toxic, No Acute Distress Skin: Normal Color, Warm, No Rash Head: Normacephalic Eye(s): bilateral: PERRL Nose: No Discharge Oral Mucosa: Moist Neck: Trachea Midline, Supple Chest: Tenderness (diffuse anterior chest wall tenderness), No Ecchymosis, No Subcutaneous Emphysema Cardiovascular: Rhythm Regular, No Murmur, No JVD Respiratory: No Decreased Breath Sounds, No Accessory Muscle Use, No Stridor, No Wheezing Gastrointestinal/Abdominal: Normal Exam, Soft, No Tenderness, No Distention, No Guarding, No Rebound Extremity: Normal ROM, Tenderness (over superior aspect Right shulder), No Deformity, No Swelling Neurological/Psych: Oriented x3, Normal Speech ED Course And Treatment - Laboratory Results Result Diagrams: 08/02/18 18:08 08/02/18 18:08 Lab Interpretation: No Acute Changes ECG: Interpreted By Me, Viewed By Me ECG Rhythm: Sinus Rhythm ECG Interpretation: No Changes From Prior Interpretation Of ECG: SR@83/min, T wave inversion in III, no acute ST-T changes. Compare to previous EKG, similar to 04/13/17 O2 Sat by Pulse Oximetry: 98 Pulse Ox Interpretation: Normal - Radiology CXR: Interpreted by Me, Read By Radiologist CXR Interpretation: Yes: No Acute Disease Progress Note: Remained stable. Pt has multiple risk factors, will benefit for OBD admisison to tele with Dx: CT, dizziness, r/o CAD. Case discussed with Elmer and admisison arranged. Disposition - Disposition Disposition: HOME/ ROUTINE Disposition Time: 18:50 Condition: STABLE Forms: [facility] (Frisian) - Clinical Impression Clinical Impression: Chest pain, Dizziness
[2018-08-02 18:17] LABS: BASO # 0.1 K/uL (0.0-0.2); BASO % 0.9 % (0.0-2.0); EOS # 0.1 K/uL (0.0-0.7); EOS % 1.2 % (0.0-4.0); LYMPH # 1.9 K/uL (1.0-4.3); LYMPH % 24.9 % (20.0-40.0); MEAN CELL VOLUME 91.4 fL (81.0-99.0); MEAN CORPUSCULAR HEMOGLOBIN 30.6 pg (27.0-31.0); MEAN CORPUSCULAR HGB CONC 33.5 g/dL (33.0-37.0); MEAN PLATELET VOLUME 8.5 fL (7.2-11.7); MONO # 0.5 K/uL (0.0-0.8); MONO % 7.1 % (0.0-10.0); NEUT # 5.1 K/uL (1.8-7.0); NEUT % 65.9 % (50.0-75.0); NRBC % 0.2 % (0.0-2.0); RBC 4.24 Mil/uL (3.80-5.20); RED CELL DISTRIBUTION WIDTH 13.4 % (11.5-14.5); WHITE BLOOD COUNT 7.8 K/uL (4.8-10.8)
[2018-08-02 18:34] LABS: BLOOD UREA NITROGEN 17 mg/dL (7-17); CALCIUM 8.7 mg/dl (8.6-10.4); GFR NON-AFRICAN AMERICAN > 60
[2018-08-02 18:45] LABS: ALB/GLOB RATIO 1.2 (1.0-2.1); ALBUMIN 4.2 g/dL (3.5-5.0); ALT/SGPT 14 U/L (9-52); AST/SGOT 47 U/L (14-36)
[2018-08-02 18:46] LABS: B-TYPE NATRIURETIC PEPTIDE 184 pg/mL (0-450)
[2018-08-02 18:48] LABS: INR 1.2
--- NOTE | 2018-08-02 18:50 | RAD ---
HISTORY: chest pain COMPARISON: Chest x-ray performed 04/13/17 TECHNIQUE: Chest, one view. FINDINGS: Examination markedly limited by habitus. LUNGS: No focal consolidation. Please note that chest x-ray has limited sensitivity for the detection of pulmonary masses. PLEURA: No significant pleural effusion identified. No definite pneumothorax . CARDIOVASCULAR: Borderline cardiomegaly. Atherosclerotic calcifications of the aorta. OSSEOUS STRUCTURES: No acute osseous abnormality identified. VISUALIZED UPPER ABDOMEN: Hyperdensities project over the upper abdomen; is unclear if this is related to external artifact or possibly ingested oral contrast. OTHER FINDINGS: None. IMPRESSION: No focal consolidation. Findings as above.
[2018-08-02 18:57] LABS: HCG,QUALITATIVE URINE NEGATIVE (NEGATIVE)
[2018-08-02 18:59] LABS: SQUAMOUS EPITHIAL 2 /hpf (0-5); URINE BILIRUBIN NEGATIVE (NEGATIVE); URINE BLOOD 1+ (NEGATIVE); URINE CLARITY Hazy (Clear); URINE COLOR Yellow (YELLOW); URINE GLUCOSE (UA) NORMAL (Normal); URINE PROTEIN NEGATIVE (NEGATIVE); URINE UROBILINOGEN NORMAL mg/dL (0.2-1.0)
[2018-08-02 19:00] LABS: URINE BACTERIA OCC (<OCC)
[2018-08-02 19:01] LABS: URINE LEUKOCYTE ESTERASE 1+ Leu/uL (Negative)
[2018-08-02] MEDS ORDERED: Oxycodone/Acetaminophen 5/325 mg Tab PO STA (19:31)
[2018-08-02] MEDS ORDERED: Oxycodone/Acetaminophen 5/325 mg Tab ONE (19:33)
[2018-08-02 21:22] VITALS: RESP 20
[2018-08-02] MEDS ORDERED: Oxycodone/Acetaminophen 5/325 mg Tab PO PRN (21:55)
[2018-08-02] MEDS ORDERED: (Lantus) Insulin Glargine, Recombinant SC SCH (22:00)
[2018-08-02] MEDS: (Novolin R) Insulin Human Regular 100 units/ml vial SC SCH (22:13)
[2018-08-03] MEDS: Oxycodone/Acetaminophen 5/325 mg Tab PO PRN ×3 (01:46→13:56)
[2018-08-03 02:38] LABS: CK-MB < 0.22 ng/mL (0.0-3.38)
[2018-08-03] MEDS: (Novolin R) Insulin Human Regular 100 units/ml vial SC SCH ×3 (07:32→16:44)
[2018-08-03 08:10] VITALS: TEMP 97.6
[2018-08-03 12:05] LABS: CK-MB < 0.22 ng/mL (0.0-3.38)
[2018-08-03] MEDS ORDERED: Iodixanol 320 MG/ML 100 ML BOTTLE IV ONE (15:43)
[2018-08-03 17:44] VITALS: BP 102/69
[2018-08-03 18:59] VITALS: PULSE 73
[2018-08-03 19:00] VITALS: O2SAT 94
[2018-08-03 20:21] LABS: CK-MB < 0.22 ng/mL (0.0-3.38)
--- NOTE | 2018-08-04 00:51 | HP ---
HISTORY OF PRESENT ILLNESS: The patient is 43-year-old morbidly obese with history of coronary artery disease, status post stent placement by Dr. Montero in [facility] about 2 years ago. The patient stated that she is compliant with Plavix daily. The patient presented to emergency room with symptoms of chest pain, more radiated toward the right shoulder and there is limitation of the right shoulder abduction, elevation. The patient was evaluated in emergency room, and due to her history of coronary artery disease, she was admitted for further management. Other review of systems is negative. ALLERGIES: POSITIVE FOR ASPIRIN AND PENICILLIN. PAST MEDICAL HISTORY: As above. SOCIAL HISTORY: Denied smoking, EtOH or substance abuse. FAMILY HISTORY: Not contributory. LAST MENSTRUAL PERIOD: Four days ago. PHYSICAL EXAMINATION: GENERAL: The patient is in bed, not in any cardiopulmonary distress. VITAL SIGNS: Blood pressure 100/63, temperature 97.6, respiratory rate 20 and pulse 72. HEENT: Pupils equal, reactive to light. Normal-appearing mucosa of the conjunctivae, oropharynx and nasal membrane mucosa. NECK: Supple. No JVD. No carotid bruit. No lymph node. No thyromegaly. CHEST AND LUNGS: Bilateral symmetrical expansion. Good air exchange. No rales, no rhonchi. CARDIOVASCULAR SYSTEM: PMI not localized. S1, S2. No additional sounds. ABDOMEN: Normoactive bowel sounds. No tenderness. No organomegaly. No masses. EXTREMITIES: There is decreased range of motion of the right shoulder with decreased abduction and tenderness around the right shoulder. SCIENCE AND OPERATIONS OFFICER: Alert, awake, oriented x3. No neurological deficit could be appreciated. ASSESSMENT: 1. Chest pain, myocardial infarction was ruled out. 2. Possible right shoulder tendinopathy with radiating pain to the chest. 3. History of coronary artery disease, status post stent placement. PLAN: Cardiology consult and follow recommendations. The patient wants to be discharged home and to follow with her cross tie maker, Dr. Montero as an outpatient. Jenae MD Abhijeet
--- NOTE | 2018-08-04 03:01 | CON ---
DATE: 08/03/2018 CARDIOLOGY CONSULTATION REASON FOR CONSULTATION: Chest pain. HISTORY OF PRESENT ILLNESS: The patient is a 43-year-old morbidly obese female who has history of diabetes mellitus, history of hypertension and coronary artery disease, status post coronary artery stenting few years ago by Dr. Ludmila Montero. The patient presented because of chest discomfort that is located in the right pectoral area, nonradiating. The patient denies any associated diaphoresis or shortness of breath. PAST MEDICAL HISTORY: History of cholecystectomy. SOCIAL HISTORY: Nonsmoker. MENSTRUAL HISTORY: Last menstrual period was Wednesday. The patient did have tubal ligation. MEDICATIONS: Heparin 5000 units subcutaneous every 12 hours, Percocet 1 tablet every 6 hours p.r.n., Plavix 75 mg once a day, Zestril 5 mg once a day. PHYSICAL EXAMINATION: GENERAL: The patient is a middle-aged female who does not appear to be in acute distress. VITAL SIGNS: Blood pressure 100/63, heart rate 72, temperature 97.6, respirations 20. HEENT: Normocephalic. CHEST: Clear. HEART: S1, S2, regular. ABDOMEN: Soft. EXTREMITIES: No edema. No calf tenderness. EKG revealed sinus rhythm, low-voltage QRS complex. LABORATORY DATA: CBC is entirely within normal limits. SMA-7 is within normal limits. Three sets of troponins are negative. D-dimer is elevated at 394. ASSESSMENT: 1. Chest pain, myocardial infarction was ruled out. 2. Rule out pulmonary infarction. 3. Morbid obesity. 4. History of coronary artery disease, status post coronary artery stenting few years ago. RECOMMENDATIONS: Continue current Plavix, subcutaneous heparin, and Zestril. A stat CT angio of the chest to rule out pulmonary embolism was ordered. I discussed the case with the as the patient is insisting on going home. If the patient continues to insist on going home, she can either sign AMA or be discharged on her own responsibility. Zan Villanueva MD
--- NOTE | 2018-08-04 06:32 | CARD ---
APPROVED REPORT Date of service: 08/02/2018 EKG Measurement Heart [id number] <Conclusion> Normal sinus rhythm Low voltage QRS Borderline ECG
--- NOTE | 2018-08-04 10:24 | CT ---
Date of service: 08/03/2018 CTA chest PE protocol Indication: r/o PE Technique: Contiguous axial images were obtained through the chest with intravenous contrast enhancement. Sagittal and coronal reconstructions were generated and reviewed. This CT exam was performed using 1 or more of the following dose reduction techniques: Automated exposure control, adjustment of the MAA and/or kV according to patient size, and/or use of iterative reconstruction technique. IV contrast: 100 mL Visipaque 320 IV Radiation dose (DLP): 609.49 MGy-cm. Comparison: Chest x-ray performed 08/02/18 Findings: Examination markedly limited by habitus. Visualized portions of the inferior thyroid gland appear heterogeneous and enlarged (left lower pole greater than right). Evidence of hypodense thyroid nodules as well as calcifications. The mediastinal and hilar vascular structures appear within normal limits. The heart appears within normal limits of size. There is suboptimal opacification of the pulmonary arteries limiting evaluation for pulmonary embolus. Given this limitation, there are no visible intraluminal filling defects within the central pulmonary arteries to suggest central pulmonary embolism. Mild basilar atelectasis. No focal consolidation. No pleural effusion. No pneumothorax. Limited visualized portions of the upper abdomen: Cholecystectomy clips. Degenerative changes. Impression: There is suboptimal opacification of the pulmonary arteries limiting evaluation for pulmonary embolus. Given this limitation, there are no visible intraluminal filling defects within the central pulmonary arteries to suggest central pulmonary embolism. Partially imaged inferior thyroid gland appears heterogeneous with multiple hypodense nodules and calcifications as well as enlarged, left lower pole greater than right) recommend outpatient ultrasound for further evaluation if indicated. Mild basilar atelectasis. Preliminary impression was provided by [employer]. Study marked for PA review.
--- NOTE | 2018-08-05 03:07 | DS ---
REASON FOR ADMISSION: This is a 43-year-old female, who was admitted for right shoulder pain, radiates to the chest. HOSPITAL COURSE: The patient was admitted to telemetry floor and myocardial infarction was ruled out by negative cardiac enzymes. The patient continued to have tenderness in the right shoulder with decreased range of motion and she had a cardiology consultation done by Dr. Villanueva. The patient had a stent placed by Dr. Ludmila Montero in 2017. The patient desired to be discharged and follow up with Dr. Montero as an outpatient. The patient was free of pain, and she was advised not to use nonsteroidal anti-inflammatory for the right shoulder tendonitis. Physical therapy and heat padding as well as topical nonsteroidal is advised. The patient was discharged in stable condition to follow with Dr. Montero and her primary care physician. FINAL DIAGNOSES: 1. Right shoulder tendinopathy. 2. History of coronary artery disease, status post stent placement. 3. Morbid obesity. Adryan Jha MD
== END 2018-08-03 20:10 | disposition home or self-care (01) ==
LOC: C.ER 16:59 → C.6T 18:53
PROVIDERS: ADMIT Internal Medicine; ATTEND Internal Medicine
DX: M75.21 Bicipital tendinitis, right shoulder (principal); J45.909 Unspecified asthma, uncomplicated; I48.91 Unspecified atrial fibrillation; I25.10 Atherosclerotic heart disease of native coronary artery without angina pectoris; I10 Essential (primary) hypertension; E66.01 Morbid (severe) obesity due to excess calories; Z95.5 Presence of coronary angioplasty implant and graft; E11.9 Type 2 diabetes mellitus without complications; Z68.42 Body mass index [BMI] 45.0-49.9, adult
CPT/HCPCS: 36415; 71045; 71275; 80053; 81001; 82948; 83880; 84484; 84703; 85025; 85378; 85610; 85730; 93005; 96372; 99285; G0378; J1644; Q9967